=== PATIENT | female | born 1930 | race Caucasian/White ===

== ENCOUNTER 2017-05-05 14:06 | Inpatient (IN) | payer OTHER ==
[~2017-05-05] VITALS: Ht 167.6 cm; Wt 78.3 kg
[~2017-05-05 14:06] MED LIST: ACET-1256 PO; CALCTAB5 PO; CHOL100010 PO; CMD/25 PO; CMD5 PO; DLCS PR; ESCI1TAB6 PO; LPR25 PO; MAGNSUS5 PO; NYSCR30 EXT; OMEP20TA PO; POLYPOW97 PO; PRD/1 PO; ROSU5TAB PO; SODIENE PR; TRAM-10 PO
--- NOTE | 2017-05-05 14:22 | EMERGENCY ROOM VISIT NOTE ---
History Report prepared by Jinibdonny: Danuta Bunn Under the Supervision of: Dr. Kaveh Chavez D.O. First contact with patient: 14:12 Stated Complaint: FALL/ RT KNEE PAIN/ [place] History of Present Illness The patient is an 86 year old female who presents to the Emergency Room with complaints of a fall that occurred prior to arrival. She was brought to the ED via EMS from [facility], where she resides. The patient reports she fell off the toilet around 1215 today and landed on her right side, hitting her right knee, which she has had previously replaced, and her right shoulder. The patient was given Tramadol for her pain at [facility], as well as Zofran and Fentanyl in the field. She is on daily Coumadin. She denies hitting her head or any loss of consciousness during her fall this afternoon. She also denies any fevers, chest pain, shortness of breath, abdominal pain, nausea, vomiting or diarrhea. Source of History: patient, EMS Onset: 1215 today Position: other (global) Timing: resolved Associated Symptoms: No LOC, No fevers, No chest pain, No SOB, No nausea, No vomiting, No abdominal pain, No diarrhea Review of Systems See HPI for pertinent positives & negatives. A total of 10 systems reviewed and were otherwise negative. Past Medical & Surgical Medical Problems: (1) ambulatory disfunction (2) Coronary artery disease (3) Gastroesophageal reflux disease (4) Hyperlipidemia (5) PMR (polymyalgia rheumatica) (6) Pulmonary embolism Family History No pertinent family history Social History Smoking Status: Never Smoker Alcohol Use: none Drug Use: none Marital Status: Housing Status: lives alone, assisted living Occupation Status: retired Current/Historical Medications Scheduled Calcium (Calcium), 1,200 MG PO QAM Cholecalciferol (Vitamin D3), 1 TAB PO DAILY Escitalopram Oxalate (Lexapro), 5 MG PO HS Metoprolol Tartrate (Lopressor), 25 MG PO DAILY Omeprazole (Omeprazole), 20 MG PO DAILY Polyethylene Glycol 3350 (Miralax), 17 GM PO DAILY Prednisone (Prednisone), 3 MG PO DAILY Rosuvastatin Calcium (Crestor), 5 MG PO DAILY Tramadol (Ultram), 50 MG PO HS Warfarin Sod (Coumadin), 2.5 MG PO 3XWK Warfarin Sod (Coumadin), 5 MG PO 4XWK Warfarin Sodium (Warfarin Sodium), 2.5 MG PO 6XWK Warfarin Sodium (Warfarin Sodium), 5 MG PO WK Scheduled PRN Acetaminophen (Tylenol), 650 MG PO Q4 PRN for Mild Pain Aluminum/Magnesium/Simeth (Maalox Max Susp), 30 ML PO ACHS PRN for Indigestion Bisacodyl (Bisac-Evac), 10 MG GA DAILY PRN for Constipation Guaifenesin (Siltussin Sa), 10 ML PO Q4 PRN for Cough Magnesium Hydroxide (Milk Of Magnesia), 30 ML PO DAILY PRN for if no bm x 3 days Menthol-Methyl Salicylate ([place]ona (Icy Hot [place] Extra Streng), 1 APPLN TOP QID PRN for Pain Sodium Phosphate/Biphosphate (Fleet Enema), 1 EA GA DAILY PRN for Constipation Tramadol (Ultram), 1 TAB PO Q4 PRN for Pain Miscellaneous Medications Nystatin (Nystatin Cream), 0 EXT Allergies Coded Allergies: Lisinopril (Verified Allergy, Mild, 05/05/17) Oxycodone (Verified Allergy, Unknown, 05/05/17) Duloxetine (Verified Adverse Reaction, Intermediate, NAUSEA,ANXIETY, ) HMG-CoA-R Inhibitors (Verified Adverse Reaction, Mild, MUSCLE ACHES, ) Morphine (Verified Adverse Reaction, Mild, N & V; 6-13:GAVE IN AMBULANCE W /O REACTION, 05/05/17) Physical Exam Vital Signs Date Time Temp Pulse Resp B/P (MAP) Pulse Ox O2 Delivery O2 Flow Rate FiO2 05/05/17 14:17 36.4 80 20 158/80 93 Room Air Physical Exam GENERAL: Patient is awake, alert, somewhat anxious and uncomfortable appearing EYES: The conjunctivae are clear. The pupils are round and reactive. EARS, NOSE, MOUTH AND THROAT: The nose is without any evidence of any deformity. Mucous membranes are dry, tongue is midline NECK: The neck is nontender and supple. RESPIRATORY: Lung sounds are diminished throughout but no tachypnea or conversational dyspnea noted. CARDIOVASCULAR: Regular rate and rhythm noted there no murmurs rubs or gallops normal S1 normal S2 GASTROINTESTINAL: The abdomen is soft. Bowel sounds are present in all quadrants. Abdomen is nontender MUSCULOSKELETAL/EXTREMITIES: Deformity and tenderness over right distal femur. There was significant swelling and ROM is limited secondary to pain. Also tenderness over the right shoulder. SKIN: Pedal edema bilaterally. Pulses are symmetric. There is no obvious evidence of any rash. There are no petechiae, pallor or cyanosis noted. NEUROLOGIC: Patient is awake alert and oriented x3 Medical Decision & Procedures ER Provider Diagnostic Interpretation: X-ray results as stated below per interpretation by me and the radiologist. RIGHT KNEE 1 OR 2 VIEWS ROUTINE CLINICAL HISTORY: Fall. Right knee pain. COMPARISON: None FINDINGS: There is an oblique moderately displaced distal right femoral fracture that extends to the level of the femoral component of the right knee arthroplasty. Fracture is displaced approximately 1.5 cm. No additional fractures are identified on this examination. IMPRESSION: Acute moderately displaced distal right femoral periprosthetic fracture. Electronically signed by: Berto Vargas M.D. 05/05/2017 3:22 PM CHEST ONE VIEW PORTABLE CLINICAL HISTORY: Fall. COMPARISON STUDY: Chest radiograph October 24, 2014. FINDINGS: Marked elevation of the right hemidiaphragm is unchanged. Right lower lung opacity favors atelectasis. Cardiomegaly is unchanged. There is no pneumothorax or pleural effusion. There is no lobar consolidation. Mild interstitial thickening is unchanged. Elevation of the right humeral head with severe arthritis of the right shoulder is noted. One level vertebral augmentation is incidentally noted. IMPRESSION: No acute cardiopulmonary findings. No change in appearance the chest. Stable mild interstitial thickening. Electronically signed by: Berto Vargas M.D. 05/05/2017 3:33 PM RIGHT PELVIS/UNILATERAL HIP 2-3VIEWS CLINICAL HISTORY: Fall. COMPARISON: CT of the abdomen and pelvis July 24, [address] of the pelvis October 20, 2015.. FINDINGS: Alignment of the total right hip arthroplasty is anatomic. There is no periprosthetic fracture. Old right ischiopubic ring fracture is noted. There is no acute fracture within the pelvis or the hips. Heterotopic ossification adjacent to the femoral component of the right hip arthroplasty is noted. IMPRESSION: 1. No acute fracture within the pelvis or hips. 2. Old right ischiopubic ring fracture. 3. Status post total right hip arthroplasty. Hardware intact with anatomic alignment. No periprosthetic fracture. Electronically signed by: Berto Vargas M.D. 05/05/2017 3:25 PM RIGHT SHOULDER MIN 2 VIEWS ROUTINE CLINICAL HISTORY: Fall. Right shoulder pain. COMPARISON: Right shoulder radiographs May 31, 2015. FINDINGS: Elevation of the right humeral head suggests a chronic rotator cuff tear. There is severe arthritis of the right shoulder. No acute fracture is identified. IMPRESSION: 1. No acute fracture. 2. Elevation of the right humeral head which suggests a chronic rotator cuff tear. 3. Severe degenerative changes of the right shoulder. Electronically signed by: Berto Vargas M.D. 05/05/2017 3:20 PM Laboratory Results Test 05/05/17 14:00 05/05/17 15:50 Activated Partial Thromboplast Time 33.1 SECONDS (21.0-31.0) Partial Thromboplastin Ratio 1.3 Troponin I < 0.015 ng/ml (0-0.045) Urine Color YELLOW Urine Appearance CLOUDY (CLEAR) Urine pH 6.0 (4.5-7.5) Urine Specific [place] 1.020 (1.000-1.030) Urine Protein NEG (NEG) Urine Glucose (UA) NEG (NEG) Urine Ketones TRACE (NEG) Urine Occult Blood NEG (NEG) Urine Nitrite NEG (NEG) Urine Bilirubin NEG (NEG) Urine Urobilinogen NEG (NEG) Urine Leukocyte Esterase SMALL (NEG) Urine WBC (Auto) 1-5 /hpf (0-5) Urine RBC (Auto) 0-4 /hpf (0-4) Urine Hyaline Casts (Auto) 1-5 /lpf (0-5) Urine Epithelial Cells (Auto) >30 /lpf (0-5) Urine Bacteria (Auto) 4+ (NEG) Urine Renal Epithelial Cells /lpf (0-5) Urine Yeast (Auto) (NONE PRSENT) Laboratory results per my review. Medications Administered Medications (Trade) Dose Ordered Sig/[facility] Route Start Time Stop Time Status Last Admin Dose Admin Fentanyl Citrate (Fentanyl Inj) 75 mcg Q20M PRN IV 05/05/17 14:30 05/05/17 17:15 DC 05/05/17 16:09 75 MCG ECG Indication: weakness (fall) Rate (beats per minute): 77 Rhythm: normal sinus Findings: no ectopy, other (Lateral T-wave abnormality) Change: no significant change (No change when compared to July 24, 2016) ED Course 1414: The patient was evaluated in room B4. A complete history and physical examination were performed. 1430: Fentanyl Citrate 75 mcg IV. 1515: I reevaluated the patient. She is resting comfortably. I discussed my recommendation that she remain in the hospital for further evaluation and management and she verbalized complete understanding and agreement. 1528: I discussed the patients case with Dr. [facility]. He recommends a knee mobilizer, and the patient remaining NPO after midnight. She will be further evaluated. 1536: I [facility] the [facility] The patient will be further evaluated. 1615: Phytonadione 5 mg/NSS 50.5 ml @ 101 mls/hr IV. Medical Decision Medication Reconciliation: I attest that I have personally reviewed the patient' s current medications list. Blood pressure screening: Patient was found to have an elevated blood pressure and was referred to their primary doctor for recheck and further treatment. Prior records reviewed and summarized above. Triage Nursing notes reviewed and agree them. Additional history obtained from EMS and Nursing Staff. The patient's history was concerning for traumatic injury. Differential diagnosis: Etiologies such as fracture, dislocation, neurovascular compromise, compartment syndrome, soft tissue injury, as well as others were entertained. The patient is an 86-year-old female who presented to the emergency department after a fall. The patient has a history of knee replacement in the past. She was found to have a periprosthetic distal right femur fracture. I discussed the x-ray with the on-call orthopedic physician. The patient was given IV pain medicine in the emergency department. She was feeling significantly improved on reevaluation. The patient was also treated with vitamin K. I discussed the patient's laboratory and radiographic studies with her and her family member. I also discussed her case with the on-call [facility] group. They've agreed to evaluate the patient in the emergency apartment for further management and disposition. Consults Time Called: 1525 Consulting Physician: Dr. [facility] Returned Call: 1528 I discussed the patients case with Dr. [facility]. He recommends a knee mobilizer, and the patient remaining NPO after midnight. She will be further evaluated. Additional Consults: Time Called: 1531 Consulted Physician: Dr. Patel [facility] Returned Call: 1536 Additional Comments: I discussed the patients case with Dr. Patel, [facility] Hospitalist. The patient will be further evaluated. Impression Primary Impression: Fall Additional Impression: Closed fracture of right distal femur Scribe Attestation The scribe's documentation has been prepared under my direction and personally reviewed by me in its entirety. I confirm that the note above accurately reflects all work, treatment, procedures, and medical decision making performed by me. Departure Information Dispostion Being Evaluated By Hospitalist Brooke Keen M.D. (PCP) Problem Qualifiers Primary Impression: Fall Encounter type: initial encounter Qualified Codes: W19.XXXA - Unspecified fall, initial encounter Additional Impression: Closed fracture of right distal femur Encounter type: initial encounter Fracture morphology: other fracture Qualified Codes: S72.491A - Other fracture of lower end of right femur, initial encounter for closed fracture
[2017-05-05 14:30] LABS: BASO % 0.6 %; BASO ABS # 0.06 K/uL (0-0.2); COMPLETE YES; EOS % 9.6 %; HEMATOCRIT 36.6 % (37-47); IG% 0.3 %; LYMPH ABS # 2.55 K/uL (1.2-3.4); MEAN CELL VOLUME 91.7 fL (80-100); MEAN CORPUSCULAR HEMOGLOBIN 28.3 pg (25-34); MEAN CORPUSCULAR HGB CONC 30.9 g/dl (32-36); MEAN PLATELET VOLUME 10.1 fL (7.4-10.4); MONO % 13.1 %; NEUT % 50.4 %; PLATELET COUNT 275 K/uL (130-400); RED BLOOD COUNT 3.99 M/uL (4.2-5.4)
[2017-05-05 14:38] LABS: PARTIAL THROMBOPLASTIN RATIO 1.3; PROTHROMBIN TIME (PATIENT) 21.9 SECONDS (9.0-12.0)
[2017-05-05] MEDS: FENTANYL CITRATE INJ 50 MCG/1 ML 2 ML VIAL IV PRN ×2 (14:41→16:09)
[2017-05-05 14:48] LABS: BLOOD UREA NITROGEN 19 mg/dl (7-18); BUN/CREATININE RATIO 17.4 (10-20); CALCIUM 8.7 mg/dl (8.5-10.1); CARBON DIOXIDE 27 mmol/L (21-32); CHLORIDE 104 mmol/L (98-107); GLUCOSE 105 mg/dl (70-99); POTASSIUM 4.2 mmol/L (3.5-5.1); SODIUM 141 mmol/L (136-145)
--- NOTE | 2017-05-05 15:21 | DIAGNOSTIC IMAGING REPORT ---
RIGHT SHOULDER MIN 2 VIEWS ROUTINE CLINICAL HISTORY: Fall. Right shoulder pain. COMPARISON: Right shoulder radiographs May 31, 2015. FINDINGS: Elevation of the right humeral head suggests a chronic rotator cuff tear. There is severe arthritis of the right shoulder. No acute fracture is identified. IMPRESSION: 1. No acute fracture. 2. Elevation of the right humeral head which suggests a chronic rotator cuff tear. 3. Severe degenerative changes of the right shoulder. Electronically signed by: Berto Vargas M.D. 05/05/2017 3:20 PM Dictated Date/Time: 05/05/2017 3:17 PM
--- NOTE | 2017-05-05 15:24 | DIAGNOSTIC IMAGING REPORT ---
RIGHT KNEE 1 OR 2 VIEWS ROUTINE CLINICAL HISTORY: Fall. Right knee pain. COMPARISON: None FINDINGS: There is an oblique moderately displaced distal right femoral fracture that extends to the level of the femoral component of the right knee arthroplasty. Fracture is displaced approximately 1.5 cm. No additional fractures are identified on this examination. IMPRESSION: Acute moderately displaced distal right femoral periprosthetic fracture. Electronically signed by: Berto Vargas M.D. 05/05/2017 3:22 PM Dictated Date/Time: 05/05/2017 3:20 PM
--- NOTE | 2017-05-05 15:26 | DIAGNOSTIC IMAGING REPORT ---
RIGHT PELVIS/UNILATERAL HIP 2-3VIEWS CLINICAL HISTORY: Fall. COMPARISON: CT of the abdomen and pelvis July 24, [address] of the pelvis October 20, 2015.. FINDINGS: Alignment of the total right hip arthroplasty is anatomic. There is no periprosthetic fracture. Old right ischiopubic ring fracture is noted. There is no acute fracture within the pelvis or the hips. Heterotopic ossification adjacent to the femoral component of the right hip arthroplasty is noted. IMPRESSION: 1. No acute fracture within the pelvis or hips. 2. Old right ischiopubic ring fracture. 3. Status post total right hip arthroplasty. Hardware intact with anatomic alignment. No periprosthetic fracture. Electronically signed by: Berto Vargas M.D. 05/05/2017 3:25 PM Dictated Date/Time: 05/05/2017 3:22 PM
--- NOTE | 2017-05-05 15:34 | DIAGNOSTIC IMAGING REPORT ---
CHEST ONE VIEW PORTABLE CLINICAL HISTORY: Fall. COMPARISON STUDY: Chest radiograph October 24, 2014. FINDINGS: Marked elevation of the right hemidiaphragm is unchanged. Right lower lung opacity favors atelectasis. Cardiomegaly is unchanged. There is no pneumothorax or pleural effusion. There is no lobar consolidation. Mild interstitial thickening is unchanged. Elevation of the right humeral head with severe arthritis of the right shoulder is noted. One level vertebral augmentation is incidentally noted. IMPRESSION: No acute cardiopulmonary findings. No change in appearance the chest. Stable mild interstitial thickening. Electronically signed by: Berto Vargas M.D. 05/05/2017 3:33 PM Dictated Date/Time: 05/05/2017 3:31 PM
[2017-05-05] MEDS ORDERED: WARF-280 PO (15:41)
[2017-05-05] MEDS ORDERED: POLY335019 PO (15:41)
[2017-05-05] MEDS ORDERED: ALUMSUS2 PO (15:41)
[2017-05-05] MEDS ORDERED: CHOL20007 PO (15:41)
[2017-05-05] MEDS ORDERED: WARF-246 PO (15:41)
[2017-05-05] MEDS ORDERED: MOML PO (15:41)
[2017-05-05] MEDS ORDERED: GUAI100S75 PO (15:41)
[2017-05-05] MEDS ORDERED: LINIOIN3 TOP (15:41)
[2017-05-05] MEDS ORDERED: CALC600T37 PO (15:41)
[2017-05-05] MEDS ORDERED: TRAM-10 PO (15:42)
[2017-05-05] MEDS ORDERED: ACET-1311 PO (15:42)
[2017-05-05 16:07] LABS: URINE APPEARANCE CLOUDY (CLEAR); URINE BILIRUBIN NEG (NEG); URINE COLOR YELLOW; URINE EPITHELIAL CELL AUTO >30 /lpf (0-5); URINE NITRITE NEG (NEG); UROBILINOGEN NEG (NEG); ZZURINE CULT IF INDIC CATH YES
[2017-05-05 16:10] LABS: MANUAL MICROSCOPIC REQUIRED? NO; REVIEW REQ? YES
[2017-05-05 16:15] VITALS: O2SAT 95; Ht 167.6 cm; Wt 78.3 kg
[2017-05-05] MEDS ORDERED: PHYTONADIONE INJ 5 MG in SODIUM CHLORIDE 0.9% 50ML 50 ML IV ONE (16:15)
[2017-05-05 17:30] VITALS: BP 161/89; PULSE 76; TEMP 36.7; O2SAT 91
[2017-05-05] MEDS: ACETAMINOPHEN 325 MG TAB PO PRN (17:31)
[2017-05-05] MEDS ORDERED: ACETAMINOPHEN IV 650 MG in EMPTY BAG 0 ML IV PRN (18:45)
[2017-05-05] MEDS ORDERED: TAPENTADOL HCL 50 MG TAB PO PRN (18:45)
--- NOTE | 2017-05-05 19:03 | History and Physical ---
History & Physical Date & Time of Service: May 05, 2017 at 18:52 Chief Complaint: [facility] Primary Care Physician: Brooke Fuller M.D. History of Present Illness Source: patient, clinic records, hospital records 86 year old female, resident of [facility], with history of Dementia, Pulmonary Embolism, A fib on coumadin, PMR on Prednisone, HTN, GERD, CKD, presenting with fall and right leg pain. Follows with Dr. Fuller for Primary Care Physician. Patient apparently stood up from the toilet, fell and landed on her right side, hitting knee on the floor. She then had severe pain on the right leg. At the ER, xray showed Acute moderately displaced distal right femoral periprosthetic fracture. Ortho consulted and plan is for surgical repair in AM. On exam, patient seen resting in bed, comfortable. Reports severe pain when moving right leg. Denies chest pain, dyspnea, palpitations, dizziness. Oriented x 2. No other symptoms. Past Medical/Surgical History Medical Problems: (1) ambulatory disfunction Status: Chronic (2) Coronary artery disease Status: Chronic (3) Gastroesophageal reflux disease Status: Chronic (4) Hyperlipidemia Status: Chronic (5) PMR (polymyalgia rheumatica) Status: Chronic (6) Pulmonary embolism Status: Chronic Family History No pertinent family history Social History Smoking Status: Never Smoker Alcohol Use: none Drug Use: none Marital Status: Housing status: lives alone Occupational Status: retired Immunizations History of Influenza Vaccine: N/A Influenza Vaccine Date: Jul 27, 2011 History of Tetanus Vaccine?: Unknown History of Pneumococcal: Yes Pneumococcal Date: May 22, 2012 History of Hepatitis B Vaccine: No Multi-Drug Resistant Organisms History of MDRO: No Allergies Coded Allergies: Lisinopril (Verified Allergy, Mild, 05/05/17) Oxycodone (Verified Allergy, Unknown, 05/05/17) Duloxetine (Verified Adverse Reaction, Intermediate, NAUSEA,ANXIETY, ) HMG-CoA-R Inhibitors (Verified Adverse Reaction, Mild, MUSCLE ACHES, ) Morphine (Verified Adverse Reaction, Mild, N & V; 6-13:GAVE IN AMBULANCE W /O REACTION, 05/05/17) Home Medications Scheduled Calcium (Calcium), 1,200 MG PO QAM Cholecalciferol (Vitamin D3), 1 TAB PO DAILY Escitalopram Oxalate (Lexapro), 5 MG PO HS Metoprolol Tartrate (Lopressor), 25 MG PO DAILY Omeprazole (Omeprazole), 20 MG PO DAILY Polyethylene Glycol 3350 (Miralax), 17 GM PO DAILY Prednisone (Prednisone), 3 MG PO DAILY Rosuvastatin Calcium (Crestor), 5 MG PO DAILY Tramadol (Ultram), 50 MG PO HS Warfarin Sod (Coumadin), 2.5 MG PO 3XWK Warfarin Sod (Coumadin), 5 MG PO 4XWK Warfarin Sodium (Warfarin Sodium), 2.5 MG PO 6XWK Warfarin Sodium (Warfarin Sodium), 5 MG PO WK Scheduled PRN Acetaminophen (Tylenol), 650 MG PO Q4 PRN for Mild Pain Aluminum/Magnesium/Simeth (Maalox Max Susp), 30 ML PO ACHS PRN for Indigestion Bisacodyl (Bisac-Evac), 10 MG [place] DAILY PRN for Constipation Guaifenesin (Siltussin Sa), 10 ML PO Q4 PRN for Cough Magnesium Hydroxide (Milk Of Magnesia), 30 ML PO DAILY PRN for if no bm x 3 days Menthol-Methyl Salicylate (Iona (Icy Hot [place] Extra Streng), 1 APPLN TOP QID PRN for Pain Sodium Phosphate/Biphosphate (Fleet Enema), 1 EA [place] DAILY PRN for Constipation Tramadol (Ultram), 1 TAB PO Q4 PRN for Pain Miscellaneous Medications Nystatin (Nystatin Cream), 0 EXT Review of Systems Constitutional- no fever; no weight loss Eyes- no acute visual changes ENT- no sinus drainage; no pharyngitis Pulmonary- no cough, no wheezing, no shortness of breath Cardiac- no chest pain, no palpitations, no orthopnea, no dependent edema GI- no nausea, no vomiting, no diarrhea, no melena, no hematochezia - no dysuria, no hematuria Musculoskeletal-(+) as noted above Derm- no rashes, no new skin lesions, no changing skin lesions Hematologic- no unusual bruising, no unusual bleeding Lymphatics- no adenopathy Endocrine- no polyuria or polydipsia; no heat or cold intolerance Neuro- no headaches, no focal neurologic symptoms Psych- no anxiety, no depression Physical Exam Vital Signs Date Time Temp Pulse Resp B/P (MAP) Pulse Ox O2 Delivery O2 Flow Rate FiO2 05/05/17 17:30 36.7 76 16 161/89 (113) 91 Room Air 05/05/17 17:01 76 16 150/71 94 05/05/17 16:50 72 16 150/71 95 Room Air 05/05/17 16:29 70 16 134/63 95 Room Air 2.0 05/05/17 16:15 95 Room Air 2.0 05/05/17 16:10 72 18 164/91 97 Nasal Cannula 2.0 05/05/17 14:17 36.4 80 20 158/80 93 Room Air General Appearance: WD/WN, no apparent distress Head: normocephalic, atraumatic Eyes: normal inspection, PERRL, EOMI, sclerae normal ENT: normal ENT inspection, hearing grossly normal, pharynx normal Neck: supple, no adenopathy, thyroid normal, no JVD, trachea midline Respiratory/Chest: chest non-tender, lungs clear, normal breath sounds, no respiratory distress, no accessory muscle use Cardiovascular: regular rate, rhythm, no edema, no murmur, normal peripheral pulses Abdomen/GI: normal bowel sounds, non tender, soft, no organomegaly Back: normal inspection, no CVA tenderness Extremities/Musculoskelatal: normal inspection, no calf tenderness, no pedal edema Neurologic/Psych: mentally retarded teacher II-XII nml as tested, no motor/sensory deficits, alert, normal mood/affect, normal reflexes, + pertinent finding (oriented x 2) Skin: normal color, warm/dry, no rash Lymphatic: no adenopathy Diagnostics Laboratory Results Results Past 24 Hours Test 05/05/17 14:00 05/05/17 15:50 Range/Units White Blood Count 9.80 4.8-10.8 K/uL Red Blood Count 3.99 4.2-5.4 M/uL Hemoglobin 11.3 12.0-16.0 g/dL Hematocrit 36.6 37-47 % Mean Corpuscular Volume 91.7 80-100 fL Mean Corpuscular Hemoglobin 28.3 25-34 pg Mean Corpuscular Hemoglobin Concent 30.9 32-36 g/dl Platelet Count 275 130-400 K/uL Mean Platelet Volume 10.1 7.4-10.4 fL Neutrophils (%) (Auto) 50.4 % Lymphocytes (%) (Auto) 26.0 % Monocytes (%) (Auto) 13.1 % Eosinophils (%) (Auto) 9.6 % Basophils (%) (Auto) 0.6 % Neutrophils # (Auto) 4.94 1.4-6.5 K/uL Lymphocytes # (Auto) 2.55 1.2-3.4 K/uL Monocytes # (Auto) 1.28 0.11-0.59 K/uL Eosinophils # (Auto) 0.94 0-0.5 K/uL Basophils # (Auto) 0.06 0-0.2 K/uL RDW Standard Deviation 50.9 36.4-46.3 fL RDW Coefficient of Variation 15.0 11.5-14.5 % Immature Granulocyte % (Auto) 0.3 % Immature Granulocyte # (Auto) 0.03 0.00-0.02 K/uL Prothrombin Time 21.9 9.0-12.0 SECONDS Prothromb Time International Ratio 2.0 0.9-1.1 Activated Partial Thromboplast Time 33.1 21.0-31.0 SECONDS Partial Thromboplastin Ratio 1.3 Sodium Level 141 136-145 mmol/L Potassium Level 4.2 3.5-5.1 mmol/L Chloride Level 104 98-107 mmol/L Carbon Dioxide Level 27 21-32 mmol/L Anion Gap 10.0 3-11 mmol/L Blood Urea Nitrogen 19 7-18 mg/dl Creatinine 1.10 0.60-1.20 mg/dl Est Creatinine Clear Calc Drug Dose 36.8 ml/min Estimated GFR () 51.9 Estimated GFR (Non- 44.8 BUN/Creatinine Ratio 17.4 10-20 Random Glucose 105 70-99 mg/dl Calcium Level 8.7 8.5-10.1 mg/dl Troponin I < 0.015 0-0.045 ng/ml Urine Color YELLOW Urine Appearance CLOUDY CLEAR Urine pH 6.0 4.5-7.5 Urine Specific [place] 1.020 1.000-1.030 Urine Protein NEG NEG Urine Glucose (UA) NEG NEG Urine Ketones TRACE NEG Urine Occult Blood NEG NEG Urine Nitrite NEG NEG Urine Bilirubin NEG NEG Urine Urobilinogen NEG NEG Urine Leukocyte Esterase SMALL NEG Urine WBC (Auto) 1-5 0-5 /hpf Urine RBC (Auto) 0-4 0-4 /hpf Urine Hyaline Casts (Auto) 1-5 0-5 /lpf Urine Epithelial Cells (Auto) >30 0-5 /lpf Urine Bacteria (Auto) 4+ NEG Urine Renal Epithelial Cells 0-5 /lpf Urine Yeast (Auto) NONE PRSENT Microbiology Results 05/05/17 Urine Culture, Received Pending Diagnostic Radiology CXR No acute cardiopulmonary findings. No change in appearance the chest. Stable mild interstitial thickening. EKG sinus rhythm, HR 77, qt 459, no signs of acute ischemia or infarct Impression Assessment and Plan 86 year old female, resident of [facility], with history of Dementia, Pulmonary Embolism, A fib on coumadin, PMR on Prednisone, HTN, GERD, CKD, presenting with fall and right leg pain. RIGHT FEMORAL FRACTURE S/P MECHANICAL FALL - no medical contraindication for surgery: moderate risk for cardiopulmonary complications secondary to age and medical history will hold coumadin, Vit K given, check INR tomorrow will hold Prednisone, Hydrocortisone 50mg IV one dose 1 hour prior to surgery , then 25mg IV q8h x 1 day, then resume usual Prednisone 3mg daily - PRN Tramadol IV fluids ASYMPTOMATIC BACTERIURIA - urine culture pending HISTORY OF PULMONARY EMBOLISM ON COUMADIN - will determine last episode may not need bridging if remote history of PE HISTORY OF ATRIAL FIBRILLATION ON COUMADIN - currently sinus rhythm - continue Metoprolol will hold coumadin, Vit K given, check INR tomorrow POLYMYALGIA RHEUMATICA, ON CHRONIC PREDNISONE will hold Prednisone, Hydrocortisone 50mg IV one dose 1 hour prior to surgery, then 25mg IV q8h x 1 day, then resume usual Prednisone 3mg daily GERD continue PPI CKD stable DEMENTIA stable DVT PROPH SCDs for now CODE STATUS DNR per [facility] records DISPO anticipate return to [facility] when cleared by Ortho Advanced Directives Existing Living Will: Yes Existing Power of Retail Support Associate: Yes VTE Prophylaxis VTE Risk Assessment Done? Y/N: Yes Risk Level: Moderate
[2017-05-05] MEDS: TRAMADOL HCL 50 MG TAB PO PRN (19:24)
[2017-05-05] MEDS: D5W AND NSS 1,000 ML IV SCH (19:43)
[2017-05-05] MEDS ORDERED: FENTANYL CITRATE INJ 50 MCG/1 ML 2 ML VIAL IV PRN (21:00)
[2017-05-05] MEDS: ESCITALOPRAM OXALATE 10 MG TAB PO SCH (21:05)
[2017-05-05] MEDS: NYSTATIN CR 15 GM TUBE EXT SCH (21:05)
[2017-05-05] MEDS ORDERED: HYDROmorphone INJ 1 MG/ML SYR ONE (21:52)
[2017-05-05] MEDS: HYDROmorphone INJ 1 MG/ML SYR IV PRN ×2 (21:55→22:31)
[2017-05-05] MEDS ORDERED: CYCLOBENZAPRINE HCL 10 MG TAB PO PRN (22:30)
[2017-05-05] MEDS ORDERED: HYDROmorphone INJ 1 MG/ML SYR IV PRN (22:45)
[2017-05-05] MEDS ORDERED: NURSING VERBAL MED ORDER ONE (22:45)
[2017-05-05 23:31] VITALS: BP 100/68; PULSE 97; TEMP 37; O2SAT 58; O2SAT 95
[2017-05-06] VITALS (16 sets, daily range): BP systolic 77–141; BP diastolic 38–81; PULSE 61–81; TEMP 36.4–36.7; O2SAT 95–99
[2017-05-06] MEDS ORDERED: HYDROCORTISONE IV 50 MG in SYRINGE 0 ML IV SCH (04:00)
[2017-05-06] MEDS ORDERED: NURSING VERBAL MED ORDER ONE ×5 (04:45→23:15)
[2017-05-06 06:46] LABS: BASO % 0.4 %; BASO ABS # 0.04 K/uL (0-0.2); COMPLETE YES; EOS % 6.3 %; HEMATOCRIT 34.7 % (37-47); IG% 0.6 %; LYMPH % 12.5 %; LYMPH ABS # 1.33 K/uL (1.2-3.4); MEAN CORPUSCULAR HEMOGLOBIN 27.9 pg (25-34); MEAN PLATELET VOLUME 9.7 fL (7.4-10.4); MONO % 12.1 %; NEUT % 68.1 %; PLATELET COUNT 240 K/uL (130-400); RED BLOOD COUNT 3.73 M/uL (4.2-5.4); WHITE BLOOD COUNT 10.62 K/uL (4.8-10.8)
[2017-05-06 06:52] LABS: INR 1.2 (0.9-1.1)
--- NOTE | 2017-05-06 07:00 | DIAGNOSTIC IMAGING REPORT ---
CHEST ONE VIEW PORTABLE CLINICAL HISTORY: low urine output, low O2 saturations, crackles in bases of lungs COMPARISON STUDY: 05/05/2017 FINDINGS: The cardiac and mediastinal contours remain stable. There is persistent elevation right hemidiaphragm. There is elevation of the interstitium. An element of pulmonary vascular congestion/fluid overload is suspected. There is no lobar consolidation. Right basilar atelectatic changes are evident. Arthritic changes are present within the shoulders with radiographic evidence of chronic right-sided rotator cuff tear. Post vertebroplasty changes are evident.[ IMPRESSION: 1. Persistent elevation right hemidiaphragm 2. Suspected mild pulmonary vascular congestion/fluid overload Electronically signed by: Flaco Rodriguez M.D. 05/06/2017 6:59 AM Dictated Date/Time: 05/06/2017 6:57 AM
[2017-05-06 07:28] LABS: BUN/CREATININE RATIO 17.9 (10-20); CALCIUM 8.3 mg/dl (8.5-10.1); POTASSIUM 4.2 mmol/L (3.5-5.1)
[2017-05-06] MEDS ORDERED: CEFAZOLIN IV 1,000 MG in DEXTROSE 5% 50ML 50 ML IV ONE (07:45)
[2017-05-06] MEDS ORDERED: CEFAZOLIN 1000MG/55 ML D5W IV SCH (08:00)
[2017-05-06] MEDS ORDERED: BUPIVACAINE 0.5 % 5 MG/1 ML PF 10ML VIAL ONE (08:00)
[2017-05-06] MEDS ORDERED: KETAMINE HCL INJ 50 MG/ML 10 ML VIAL ONE ×2 (08:03→13:06)
[2017-05-06] MEDS ORDERED: BACITRACIN 50000 UNIT VIAL ONE ×2 (08:04→13:07)
[2017-05-06] MEDS ORDERED: LIDOCAINE 2% 20 MG/ML 5ML SYR ONE (08:05)
[2017-05-06] MEDS ORDERED: MIDAZOLAM HCL 1 MG/ML 2ML VIAL ONE (08:05)
[2017-05-06] MEDS ORDERED: PROPOFOL IV EMULSION 10 MG/ML 20 ML VIAL IV ONE ×2 (08:05→11:27)
[2017-05-06] MEDS ORDERED: FENTANYL CITRATE INJ 50 MCG/1 ML 2 ML VIAL ONE ×3 (08:06→14:09)
[2017-05-06] MEDS ORDERED: CEFAZOLIN IV 2,000 MG/60 ML D5W IV ONE (08:07)
--- NOTE | 2017-05-06 08:09 | History & Physical Bridge Note ---
H&P Re-Evaluation Bridge Note: I have examined the patient, reviewed the History & Physical and in the interval since the performance of the History & Physical I have noted the following changes of clinical significance: No changes noted
--- NOTE | 2017-05-06 08:11 | Progress Note ---
Orthopedic SOAP Note Subjective Date of Service: May 06, 2017. Additional Notes: confused follows commands sedated some Problem List Medical Problems: (1) Closed fracture of right distal femur Status: Acute (2) Epigastric abdominal pain Status: Acute (3) Fall Status: Acute (4) Low back pain Status: Acute (5) Lumbar compression fracture Status: Acute Objective right knee in immobilizer distal csm intact pain with any movement Date Time Temp Pulse Resp B/P (MAP) Pulse Ox O2 Delivery O2 Flow Rate FiO2 05/06/17 07:25 36.6 75 15 131/81 (98) 99 Nasal Cannula 4.0 05/06/17 03:13 36.4 81 16 141/78 (99) 97 Nasal Cannula 3.0 05/05/17 23:31 95 Nasal Cannula 3.0 05/05/17 23:31 37.0 97 16 100/68 (79) 58 Room Air 05/05/17 23:15 Room Air 05/05/17 17:30 36.7 76 16 161/89 (113) 91 Room Air 05/05/17 17:20 Room Air 05/05/17 17:01 76 16 150/71 94 05/05/17 16:50 72 16 150/71 95 Room Air 05/05/17 16:29 70 16 134/63 95 Room Air 2.0 05/05/17 16:15 95 Room Air 2.0 05/05/17 16:10 72 18 164/91 97 Nasal Cannula 2.0 05/05/17 14:17 36.4 80 20 158/80 93 Room Air Laboratory Results 24 Hours: Test 05/05/17 14:00 05/06/17 06:09 White Blood Count 9.80 K/uL 10.62 K/uL Red Blood Count 3.99 M/uL 3.73 M/uL Hemoglobin 11.3 g/dL 10.4 g/dL Hematocrit 36.6 % 34.7 % Mean Corpuscular Volume 91.7 fL 93.0 fL Mean Corpuscular Hemoglobin 28.3 pg 27.9 pg Mean Corpuscular Hemoglobin Concent 30.9 g/dl 30.0 g/dl Platelet Count 275 K/uL 240 K/uL Mean Platelet Volume 10.1 fL 9.7 fL Neutrophils (%) (Auto) 50.4 % 68.1 % Lymphocytes (%) (Auto) 26.0 % 12.5 % Monocytes (%) (Auto) 13.1 % 12.1 % Eosinophils (%) (Auto) 9.6 % 6.3 % Basophils (%) (Auto) 0.6 % 0.4 % Neutrophils # (Auto) 4.94 K/uL 7.24 K/uL Lymphocytes # (Auto) 2.55 K/uL 1.33 K/uL Monocytes # (Auto) 1.28 K/uL 1.28 K/uL Eosinophils # (Auto) 0.94 K/uL 0.67 K/uL Basophils # (Auto) 0.06 K/uL 0.04 K/uL Prothromb Time International Ratio 2.0 1.2 Prothrombin Time 21.9 SECONDS 13.0 SECONDS Assessment periprosthetic femur fracture s/p right tka Plan orif locking periprosthetic plate
[2017-05-06] MEDS: D5W AND NSS 1,000 ML IV SCH ×3 (08:15→19:30)
[2017-05-06] MEDS ORDERED: LACTATED RINGER'S 1000ML 1,000 ML IV PRN (08:22)
[2017-05-06] MEDS ORDERED: CEFAZOLIN 2000 MG/60 ML D5W IV SCH (08:30)
[2017-05-06] MEDS ORDERED: FENTANYL CITRATE INJ 50 MCG/1 ML 2 ML VIAL IV PRN (08:30)
[2017-05-06] MEDS ORDERED: ONDANSETRON INJ 2 MG/ML 2 ML VIAL IV PRN (08:30)
[2017-05-06] MEDS: NYSTATIN CR 15 GM TUBE EXT SCH ×2 (09:00→20:49)
[2017-05-06] MEDS ORDERED: PANTOprazole SOD 40 MG TAB PO SCH (09:00)
[2017-05-06] MEDS: POLYETHYLENE (MIRALAX) 17 GM PACK PO SCH (09:00)
--- NOTE | 2017-05-06 09:41 | CONSULTATION REPORT ---
DATE OF CONSULTATION: 05/06/2017 CHIEF COMPLAINT: Right leg injury. HISTORY OF PRESENT ILLNESS: This is an 86-year-old female who is a resident of [facility]. She apparently stood up from her toilet and fell, landing on her right side with her knee hitting the floor. She was transported to the [facility] Emergency Department due to being unable to ambulate. X-rays showed a displaced right femoral periprosthetic fracture. The patient was admitted by medicine for surgical repair. PAST MEDICAL HISTORY: Dementia, pulmonary embolism, atrial fibrillation; on Coumadin, polymyalgia rheumatica; on prednisone, hypertension, GERD, chronic kidney disease, ambulatory dysfunction and coronary artery disease. FAMILY HISTORY: Noncontributory. SOCIAL HISTORY: The patient is a nonsmoker, nondrinker. She is a resident at [facility]. HOME MEDICATIONS: Reviewed in the admitting H and P. PAST SURGICAL HISTORY: Refer to admitting H and P. Again includes bilateral total knee replacements, hysterectomy and hip surgery. ALLERGIES: INCLUDE JULES INHIBITORS, DILANTIN AND LISINOPRIL. URRENT LABORATORY STUDIES ON ADMISSION: She is on Coumadin. Given the INR of 2.0, medicine team did reverse that with vitamin K. Currently this morning, it is 1.2 and acceptable for surgery. PHYSICAL EXAMINATION: CURRENT VITAL SIGNS: Temperature is 36.4, pulse is 81, blood pressure is 141/78, pulse ox is 97 with 3 L of oxygen. GENERAL: Well-developed, well-nourished 86-year-old female. She is in no acute distress. She is very demented. She is not oriented to place or time at this point this morning. HEENT: Normocephalic, atraumatic. Extraocular motions are intact. Pupils are equal and reactive to light. HEART: Regular rate and rhythm. No murmurs appreciated. LUNGS: Clear. ABDOMEN: Soft and nontender with bowel sounds present. EXTREMITIES: Right lower extremity is immobilized was straight leg immobilizer. She is able to wiggle her toes. This was not removed. DIAGNOSES: Right femoral periprosthetic femur fracture. She has a history of dementia, pulmonary embolism, atrial fibrillation; on Coumadin, polymyalgia rheumatica; on prednisone, hypertension, GERD, chronic kidney disease, ambulatory dysfunction and coronary artery disease. PLAN: The patient will be admitted by medicine. Orthopedically, the plan will be to do an open reduction internal fixation of the right periprosthetic femur fracture when she is cleared by medicine.
--- NOTE | 2017-05-06 10:00 | ORTHOPEDIC CONSULTATION ---
DATE OF CONSULTATION: 05/06/2017 HISTORY OF PRESENT ILLNESS: The patient is an 86-year-old female who is a resident of [facility]. She has some dementia, had a history of pulmonary embolism in the past. She has AFib, aortic stenosis, she is on chronic Coumadin. She has polymyalgia rheumatica. She is on prednisone. Hypertension, GERD, chronic kidney disease. She had a fall and right leg pain. X-rays demonstrating a periprosthetic right femur fracture just above the prosthetic, it is a low fracture, a low oblique type fracture. She does have some osteopenia. She has a history of prior ambulatory dysfunction, coronary artery disease, reflux disease, hyperlipidemia, PMR, pulmonary embolism. SOCIAL HISTORY: She is , lives in a custodial. MEDICATIONS: Pertinent medication are the prednisone 3 mg daily, and the Coumadin. Other medications for pain are chronic Ultram and she takes other meds including MiraLax, omeprazole, Lopressor, Lexapro, vitamin D, calcium. PHYSICAL EXAMINATION: Demonstrates that she is awake, alert. She follows commands, but she is a little bit confused. Her right lower extremity demonstrates that she has a knee held in the flexed position. She has a knee immobilizer. She can dorsiflex her ankle and great toe. She has good capillary refill. Her opposite extremity shows an incision from a knee replacement on the left knee. Neurovascularly intact left lower extremity. Her x-rays demonstrate a oblique periprosthetic right femur fracture just above the prosthetic, extends down to about the level of the prosthetic. She does have some osteopenia of the bones. 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 She had old, appears to be pubic ramus fracture on that side as well. She has significant degenerative disc disease on the lumbar spine. Left hip appears to be normal. ASSESSMENT: Acute periprosthetic right femur fracture. Options for treatment are open reduction and internal fixation with plate and screw fixation versus a distal femoral replacement revision knee replacement. I think at her age and with activity level proceeding with open reduction and internal fixation is a better option. She is scheduled for the surgery today as her INR has decreased from 2 to 1.2 now with vitamin K medication. I discussed the case and got consent from her daughter who is her power of family law attorney, aware of all the risks and benefits.
[2017-05-06] MEDS: METOPROLOL TARTRATE 25 MG TAB PO SCH (10:13)
[2017-05-06] MEDS: ROSUVASTATIN CALCIUM 5 MG TAB PO SCH (10:13)
[2017-05-06] MEDS: HYDROmorphone INJ 1 MG/ML SYR IV PRN (10:13)
[2017-05-06] MEDS ORDERED: ROCURONIUM BROMIDE 10 MG/ML 5 ML VIAL ONE ×2 (11:27→14:06)
[2017-05-06] MEDS ORDERED: LIDOCAINE HCL 2% 2 ML VIAL (20MG/ML) ONE (11:27)
[2017-05-06] MEDS ORDERED: ONDANSETRON INJ 2 MG/ML 2 ML VIAL ONE (13:42)
[2017-05-06] MEDS ORDERED: DEXAMETHASONE SOD INJ 4 MG/ML VIAL ONE (13:42)
[2017-05-06] MEDS ORDERED: EpHEDrine SULFATE 50MG/5ML SYR ONE (13:42)
--- NOTE | 2017-05-06 14:01 | Progress Note ---
Medicine Progress Note Date & Time of Visit: May 06, 2017 at 12:39. Subjective patient seen resting in bed, family at bedside denies shortness of breath, cough, chest pain still has significant right leg pain when moving no other symptoms Objective Last 8 Hrs Date Time Temp Pulse Resp B/P (MAP) Pulse Ox O2 Delivery O2 Flow Rate FiO2 05/06/17 07:50 98 Nasal Cannula 3.0 05/06/17 07:25 36.6 75 15 131/81 (98) 99 Nasal Cannula 4.0 Physical Exam: General- oriented x 2, not in distress, speaks in sentences with no effort Head- atraumatic Eyes- EOMI, anicteric ENT- dry oral mucosa Neck- supple, no JVD Lungs- clear breath sounds bilaterally, no rales/wheezes Heart- regular rhythm; no murmur, normal rate Abdomen- normal bowel sounds, soft, nontender, Extremities- right leg with soft brace on, no bipedal edema Neuro- alert, oriented x 3; no gross focal deficits Skin- warm & dry Laboratory Results: Last 24 Hours Test 05/05/17 14:00 05/05/17 15:50 05/06/17 06:09 White Blood Count 9.80 K/uL 10.62 K/uL Red Blood Count 3.99 M/uL 3.73 M/uL Hemoglobin 11.3 g/dL 10.4 g/dL Hematocrit 36.6 % 34.7 % Mean Corpuscular Volume 91.7 fL 93.0 fL Mean Corpuscular Hemoglobin 28.3 pg 27.9 pg Mean Corpuscular Hemoglobin Concent 30.9 g/dl 30.0 g/dl Platelet Count 275 K/uL 240 K/uL Mean Platelet Volume 10.1 fL 9.7 fL Neutrophils (%) (Auto) 50.4 % 68.1 % Lymphocytes (%) (Auto) 26.0 % 12.5 % Monocytes (%) (Auto) 13.1 % 12.1 % Eosinophils (%) (Auto) 9.6 % 6.3 % Basophils (%) (Auto) 0.6 % 0.4 % Neutrophils # (Auto) 4.94 K/uL 7.24 K/uL Lymphocytes # (Auto) 2.55 K/uL 1.33 K/uL Monocytes # (Auto) 1.28 K/uL 1.28 K/uL Eosinophils # (Auto) 0.94 K/uL 0.67 K/uL Basophils # (Auto) 0.06 K/uL 0.04 K/uL RDW Standard Deviation 50.9 fL 51.8 fL RDW Coefficient of Variation 15.0 % 15.1 % Immature Granulocyte % (Auto) 0.3 % 0.6 % Immature Granulocyte # (Auto) 0.03 K/uL 0.06 K/uL Prothrombin Time 21.9 SECONDS 13.0 SECONDS Prothromb Time International Ratio 2.0 1.2 Activated Partial Thromboplast Time 33.1 SECONDS Partial Thromboplastin Ratio 1.3 Sodium Level 141 mmol/L 142 mmol/L Potassium Level 4.2 mmol/L 4.2 mmol/L Chloride Level 104 mmol/L 105 mmol/L Carbon Dioxide Level 27 mmol/L 31 mmol/L Anion Gap 10.0 mmol/L 6.0 mmol/L Blood Urea Nitrogen 19 mg/dl 18 mg/dl Creatinine 1.10 mg/dl 1.00 mg/dl Est Creatinine Clear Calc Drug Dose 36.8 ml/min 40.5 ml/min Estimated GFR () 51.9 58.3 Estimated GFR (Non- 44.8 50.3 BUN/Creatinine Ratio 17.4 17.9 Random Glucose 105 mg/dl 110 mg/dl Calcium Level 8.7 mg/dl 8.3 mg/dl Troponin I < 0.015 ng/ml Urine Color YELLOW Urine Appearance CLOUDY Urine pH 6.0 Urine Specific Sheridan 1.020 Urine Protein NEG Urine Glucose (UA) NEG Urine Ketones TRACE Urine Occult Blood NEG Urine Nitrite NEG Urine Bilirubin NEG Urine Urobilinogen NEG Urine Leukocyte Esterase SMALL Urine WBC (Auto) 1-5 /hpf Urine RBC (Auto) 0-4 /hpf Urine Hyaline Casts (Auto) 1-5 /lpf Urine Epithelial Cells (Auto) >30 /lpf Urine Bacteria (Auto) 4+ Urine Renal Epithelial Cells /lpf Urine Yeast (Auto) Date/Time Source Procedure Growth Status 05/05/17 19:50 Nasal MRSA DNA Surveillance Screen - Final Specimen Negative for MRSA by DNA Probe Complete 05/05/17 15:50 Urine,Catheterized Urine Culture Pending Received Assessment & Plan 86 year old female, resident of [facility], with history of Dementia, Pulmonary Embolism, A fib on coumadin, PMR on Prednisone, HTN, GERD, CKD, presenting with fall and right leg pain. RIGHT FEMORAL FRACTURE S/P MECHANICAL FALL - no medical contraindication for surgery: moderate risk for cardiopulmonary complications secondary to age and medical history holding coumadin, Vit K given, INR 1.2--> resume coumadin as soon as hemostasis stable per Ortho will hold Prednisone, Hydrocortisone 50mg IV one dose 1 hour prior to surgery , then 25mg IV q8h x 1 day, then resume usual Prednisone 3mg daily - PRN Tramadol IV fluids ASYMPTOMATIC BACTERIURIA - urine culture pending HISTORY OF PULMONARY EMBOLISM ON COUMADIN - last episode at least > 5 years from now - may not need bridging but needs to resume Coumadin as soon as possible HISTORY OF ATRIAL FIBRILLATION ON COUMADIN - currently sinus rhythm - continue Metoprolol will hold coumadin, Vit K given POLYMYALGIA RHEUMATICA, ON CHRONIC PREDNISONE will hold Prednisone, Hydrocortisone 50mg IV one dose 1 hour prior to surgery, then 25mg IV q8h x 1 day, then resume usual Prednisone 3mg daily GERD continue PPI CKD stable DEMENTIA stable DVT PROPH SCDs for now CODE STATUS DNR per [facility] records DISPO anticipate return to [facility] when cleared by Ortho Advanced Directives Existing Living Will: Yes Existing Power of Riffler Tender: Yes VTE Prophylaxis VTE Risk Assessment Done? Y/N: Yes Risk Level: Moderate Current Inpatient Medications: Current Inpatient Medications Medications (Trade) Dose Ordered Sig/Nemesio Route Start Time Stop Time Status Last Admin Dose Admin Acetaminophen (Tylenol Tab) 650 mg Q4H PRN PO 05/05/17 16:15 06/04/17 16:14 05/05/17 17:31 650 MG Dextrose/Sodium Chloride 1,000 ml @ 60 mls/hr [id number] IV 05/05/17 18:45 06/04/17 18:44 05/06/17 11:50 60 MLS/HR Tramadol HCl (Ultram Tab) 50 mg Q6H PRN PO 05/05/17 18:45 06/04/17 18:44 05/05/17 19:24 50 MG Acetaminophen 650 mg/Empty Bag 65 ml @ 260 mls/hr Q6H PRN IV 05/05/17 18:45 06/04/17 18:44 Hydrocortisone Sodium Succinate 50 mg/Syringe 1 ml @ 4 mls/min TODAY@0400 IV 05/06/17 04:00 05/06/17 14:00 Escitalopram Oxalate (Lexapro Tab) 5 mg HS PO 05/05/17 21:00 06/04/17 20:59 05/05/17 21:05 5 MG Metoprolol Tartrate (Lopressor Tab) 25 mg DAILY PO 05/06/17 09:00 06/05/17 08:59 05/06/17 10:13 25 MG Nystatin (Mycostatin Crm) 1 appln BID EXT 05/05/17 21:00 06/04/17 20:59 05/05/17 21:05 1 APPLN Rosuvastatin Calcium (Crestor Tab) 5 mg DAILY PO 05/06/17 09:00 06/05/17 08:59 05/06/17 10:13 5 MG Pantoprazole Sodium (Protonix Tab) 40 mg DAILY PO 05/06/17 09:00 06/05/17 08:59 05/06/17 10:13 40 MG Polyethylene (Miralax Powder Packet) 17 gm DAILY PO 05/06/17 09:00 06/05/17 08:59 Hydromorphone HCl (Dilaudid Inj) 0.5 mg Q6H PRN IV 05/05/17 21:45 05/19/17 21:44 05/06/17 10:13 0.5 MG Hydromorphone HCl (Dilaudid Inj) 1 mg Q4H PRN IV 05/05/17 22:45 05/19/17 22:44 Cefazolin Sodium 60 ml @ 100 mls/hr PREOP IV 05/06/17 08:30 05/06/17 16:00
[2017-05-06] MEDS ORDERED: GLYCOPYRROLATE INJ 0.2 MG/ML VIAL ONE (14:59)
[2017-05-06] MEDS ORDERED: NEOSTIGMINE METHYLSULFATE 5 MG/5 ML SYR ONE (14:59)
--- NOTE | 2017-05-06 15:48 | [facility] Operative Report ---
Operative Report Operative Date May 06, 2017. Pre-Operative Diagnosis Acute periprosthetic Femur Fracture Right,h/o TKA Post-Operative Diagnosis SAME Procedure(s) Performed ORIF with synthes locking plate and screws Surgeon Teasel Gig Operator Surgeon(s) Iam Kang PA-C Estimated Blood Loss 200ML Findings distal femoral metaphyseal periprosthetic fx no loosening of TKA osteopenia and some comminution medial Specimens None per surgeon. Drains 2 hemovac Anesthesia general Complication(s) None Disposition Recovery Room / PACU Indications acute unstable displaced fracture I attest to the content of the Intraoperative Record and any orders documented therein. Any exceptions are noted below.
--- NOTE | 2017-05-06 16:08 | DIAGNOSTIC IMAGING REPORT ---
INTRAOPERATIVE RIGHT FEMUR 3 VIEWS CLINICAL HISTORY: Fracture. INTERNAL FIXATION COMPARISON: Conventional radiographic study the knee dated 05/05/2017 DISCUSSION: 76 seconds of fluoroscopic time was utilized. There are postsurgical changes of a total right knee arthroplasty. There is evidence for internal fixation of distal femoral fracture with a lateral metallic plate and multiple screws. IMPRESSION: Interval internal fixation of the distal right femoral periprosthetic fracture. Electronically signed by: Flaco Rodriguez M.D. 05/06/2017 4:07 PM Dictated Date/Time: 05/06/2017 4:06 PM
[2017-05-06] MEDS ORDERED: WARFARIN SOD 2.5 MG TAB PO SCH (16:30)
[2017-05-06] MEDS ORDERED: MIDAZOLAM HCL 5 MG/ML 1 ML VIAL ONE (16:53)
--- NOTE | 2017-05-06 17:34 | OPERATIVE REPORT ---
DATE OF OPERATION: 05/06/2017 INDICATION FOR PROCEDURE: An 86-year-old female who presents with acute fracture to her right femur. She had a fall. She lives in a personal retirement. She had total knee replacement by Dr. Dawson many years ago. She also had bipolar hip replacement on her right hip. She fractured her femur in the metaphysis, it is an oblique fracture, extends right down to the joint replacement to the prosthetic. PREOPERATIVE DIAGNOSES: Periprosthetic right femur fracture, history of total knee replacement, ipsilateral. History of prior bipolar hip replacement, ipsilateral. POSTOPERATIVE DIAGNOSES: Same including osteopenia/osteoporosis of the bone with some comminution medial metaphysis. PROCEDURE: Open reduction and internal fixation right femoral fracture with a Synthes 6-hole locking condylar plate with screw fixation. SURGEON: Dr. Muñoz. DATA OPERATIONS DIRECTOR: ADEOLA Washburn ANESTHESIA: General. OPERATIVE PROCEDURE: The patient was taken to the operating room, anesthetized under general anesthetic. She did have a history of aortic stenosis. General was indicated per anesthesia. She also had some muscle relaxant to assist in reduction. She was placed supine on the operating room table. The right lower extremity was prepped and draped in a sterile fashion. Exam of her opposite knee which had a slight flexion contracture, so slight flexion contracture is probably her baseline on her right knee as well. Right lower extremity was prepped and draped with ChloraPrep from the foot to the hip. Her fracture was grossly unstable. It was closed fracture. A lateral incision was made starting at Gerdy's tubercle extending along the IT band extending up to about the mid thigh. The skin was incised sharply. Subcutaneous flaps were elevated. The fascia ginger was divided longitudinally and the IT band was split. Dissection was taken down on to the distal femoral fracture. We had to release the synovium to actually visualize the joint because the fracture went all the way down into the joint right at the superior flange of the joint replacement, fracture went right down to the tip of the prosthetic anteriorly. The shaft fragment medially was displaced distal and the spike of the fracture fragment which was posterior was around 6 cm. This was more of a spiral short oblique fracture with a posterior spike. At this time, the vastus lateralis was dissected carefully off the IT band posteriorly and reflected anteriorly and then we exposed the proximal femoral shaft enough to place our plate in position. There were 2 large perforating vessels that we tied off with silk ties and divided. At this time, a fracture reduction was performed by placing longitudinal traction. Placing appropriate rotation I placed a lion-jaw type retractor instead shaft superiorly and inferiorly placed traction, rotated the fracture and assisted it with some Coyle elevator to reduce the fracture anatomically and then it was grasped with another lion-jaw reduction forceps. We checked fluoroscopic views to assess the alignment to be anatomic and noticed some medial comminution. At this time, I thought we could stabilize the fracture with an anterior superior posterior inferior lag screw directed at the more of a lateral side where there was better bone. So I did lag this with a 4.5 cortical screw with a Synthes screw stainless steel. The lag screw held the reduction well. We had to continue traction on the leg and held retractors to adjust a 6-hole Synthes locking condylar plate onto the lateral femoral shaft and condyle. We positioned this appropriately, placed the central guidepin into the large central hole to maintain the alignment along the distal fragment and then proximally I lagged another 4.5 mm cortical screw from lateral to medial, lagging the plate down and compressing it onto the femoral shaft. This maintained our length and reduction. We assessed the AP and lateral views to ensure appropriate alignment of the plate and then went ahead and placed the 5 mm locking screws in all but the anterior distal most hole in the plate which we used a solid 5 mm screw which was only 18 mm and was too short of a distance between the bone and the metal prosthetic to place cannulated screw. The central screw was the 7.3 mm cannulated screw and the proximal locking screws were 4 mm shaft locking screws. With gentle range of motion fixation was solid. We assessed the AP and lateral views demonstrating the reduction to be anatomic. The wound was irrigated copiously with pulsatile lavage antibiotic solution and bacitracin including the knee joint and then I brought 2 drains out laterally and connected to a Hemovac and placed it deep to the vastus lateralis and 1 into the joint anteriorly and 1 posterior to the fracture site. The fascia ginger was closed with [id number] #1 Vicryl sutures. The IT band closed with [id number] #1 Vicryl sutures. The subcutaneous tissues were closed with interrupted 2-0 Vicryl and the skin was closed with rickey. Sterile dressings were applied and Manolo wrap from the foot to the thigh and knee immobilizer was applied. The patient had about 200 mL estimated blood loss and tolerated the procedure well. ADEOLA Washburn was my instructional assistant and he functioned as instructional assistant in the procedure. He assisted in fracture reduction, maintaining the reduction, retraction, assisted in the subcutaneous skin closure and will participate in the postoperative care of the patient. I attest to the content of the Intraoperative Record and any orders documented therein. Any exception s are noted below.
[2017-05-06] MEDS: HYDROCORTISONE IV 25 MG in SYRINGE 0 ML IV SCH (19:45)
--- NOTE | 2017-05-06 19:59 | DIAGNOSTIC IMAGING REPORT ---
KUB CLINICAL HISTORY: OGT placement COMPARISON STUDY: 03/30/2014 FINDINGS: There is no pathologic bowel dilatation. There is enteric tube projected over the stomach. Degenerative changes are present within the spine. There is evidence for prior T12 vertebroplasty. IMPRESSION: The enteric tube is visualized with its tip projected over the stomach. Electronically signed by: Flaco Rodriguez M.D. 05/06/2017 7:58 PM Dictated Date/Time: 05/06/2017 7:57 PM
--- NOTE | 2017-05-06 20:13 | DIAGNOSTIC IMAGING REPORT ---
CHEST ONE VIEW PORTABLE CLINICAL HISTORY: Intubation RESPIRATORY FAILURE COMPARISON STUDY: 05/06/2017 FINDINGS: There is a nasogastric tube which passes into the stomach. There is an endotracheal tube 28 mm above the chantel. The cardiac images so contours remain stable. There is elevation of the right hemidiaphragm. There is continued radiographic evidence of pulmonary vascular congestion/fluid overload.[ IMPRESSION: 1. Interval placement of endotracheal tube 20 mm above the chantel 2. Nasogastric tube within the stomach 3. Persistent elevation right hemidiaphragm 4. Persistent mild pulmonary vascular congestion/fluid overload Electronically signed by: Flaco Rodriguez M.D. 05/06/2017 8:12 PM Dictated Date/Time: 05/06/2017 8:11 PM
--- NOTE | 2017-05-06 20:25 | Anesthesiology Progress Note ---
Anesthesia Post Op Note Date & Time May 06, 2017 at 19:24 Vital Signs Pain Intensity: 0.0 Vital Signs Past 12 Hours Date Time Temp Pulse Resp B/P (MAP) Pulse Ox O2 Delivery O2 Flow Rate FiO2 05/06/17 17:55 36.4 85 14 112/52 97 Mechanical Ventilator 05/06/17 17:45 89 14 123/52 98 Mask 15 05/06/17 17:35 36.4 85 14 158/82 97 Mask 15 05/06/17 17:25 82 14 161/69 97 Mask 15 05/06/17 17:15 81 14 153/68 98 Mask 15 05/06/17 17:05 87 18 154/68 89 Mask 10 05/06/17 16:55 83 18 152/78 95 Mask 10 05/06/17 16:45 36.7 89 18 172/85 94 Mask 10 05/06/17 16:37 36.7 90 18 174/93 94 Mask 10 05/06/17 07:50 98 Nasal Cannula 3.0 05/06/17 07:25 36.6 75 15 131/81 (98) 99 Nasal Cannula 4.0 Notes Mental Status: see Notes Nausea / Vomiting: see Notes Pain: see Notes Airway Patency, RR, SpO2: see Notes BP & HR: stable & adequate Hydration State: stable & adequate See anesthesia record for additional details. Pt was to have ORIF of distal femur fracture. I chose to avoid a spinal because her echo from showed mild- mod . This may have worsened since then. Spinals in this situation can result in significant hypotension. Therefore, I opted for general anesthesia. We chose to intubate w/ a Glidescope since I noted a protuberance from her hard palate which may make direct laryngoscopy w/ out a Glidescope difficult. After a smooth induction, we easily intubated the pt. We did note some thick secretions in the pharynx which we suctioned. The case was unremarkable. She was hemodynamically stable w/ 99-100% sats throughout. At the end of the case, she had 4/4 twitches. I gave an appropriate, weight-based dose of reversal of neuromuscular blockade. She was moving, opening her eyes, following some commands, and pulling adequate tidal volumes w/ appropriate respiratory rate. She thus met extubation criteria. I suctioned some thick, purulent secretions from her oropharynx prior to extubation. After I extubated, I noted more secretions in her mouth so I suctioned these. I then noted her to not be moving air despite respiratory effort. I attempted to mask ventilate but was unable, even w/ an oral airway. I strongly suspected laryngospasm, possibly related to the secretions. I applied positive pressure w/ the mask but was unable to break the laryngospasm. Her sats began to drop. I gave 20 mg succinylcholine IV which quickly broke the spasm. I was then able to easily ventilate and her sats returned to the high 90s. The lowest sat I saw was 87% but she quickly recovered ; she was < 90% for less than a minute. I continued to ventilate, expecting this small dose of succinylcholine to resolve after several minutes. After maybe 15 minutes, she began to make respiratory effort but was "breathing" extremely shallowly, requiring assistance. She was not moving her extremities, eyes, or swallowing. After another 15 minutes or so, she was still breathing very shallowly but not moving. Without assistance, her sat would slowly drift down, falling to the low 90s over the course of several minutes. She had 4/4 twitches but they were weak. 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 I was hoping it was either quantitative (low levels of normal versions of the enzyme) or heterozygous qualitative (one allele normal, the other abnormal). Either of these may prolong the duration of succinylcholine by perhaps 30 minutes. Also, the neostigmine that I had given w/ my reversal can slightly prolong the duration of succinylcholine. I therefore took her to the ICU for recovery while assisting her breathing, waiting for the succinylcholine to metabolize and her to regain full neuromuscular function. In the ICU, she continued to breath at a rate of 15 per minute but still very shallow, requiring assistance. Her pupils were equal, reactive, and not pinpoint. She still had no movement. We gave 1 mg midazolam so that she would not be "awake" but unable to move. She still had 4/4 weak twitches. 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 I therefore decided to reintubate. We gave an additional 1 mg of midazolam and 30 mg propofol and I again easily intubated w/ a 7.0 ETT using the Glidescope. She had positive CO2 change, and equal breath sounds at 21 cm at the teeth. The tube was secured by the RT. I gave report to the precinct police captain present, Dr. Chandler. She was hemodynamically stable throughout this entire process. She remained so w/ sats in the high 90s when I left. Vent management per ICU team. I just saw the pt and she is reportedly starting to move (coughed w/ suctioning) . She is certainly not yet vigorous and is still on the vent. The plan from the ICU team is to leave the patient intubated and mechanically ventilated at least overnight to allow her to fully regain neuromuscular function. When this occurs , she should be able to be extubated. I do not suspect that she developed significant negative pressure pulmonary edema as a result of the laryngospasm since I had no problems w/ hypoxia as long as I was assisting ventilation. I certainly noted to edema fluid in the airway. Also, patients of this age are unlikely to be able to generate sufficient force to cause negative pressure pulmonary edema. I spoke to the pt's daughter on the phone. I explained to her the situation and the plan. I answered her questions. I told her that I would be available in the hospital all night if any other family members wanted an explanation.
--- NOTE | 2017-05-06 20:30 | Critical Care Consultation ---
Critical Care Consultation Date of Consultation: May 06, 2017. Attending Physician: Ap Patel MD Reason for Consultation: Prolonged Recovery S/P Femur Fracture ORIF, Suspicion of Pseudocholinesterase Deficiency after Succinylcholine and reversal with neostigmine History of Present Illness Gracie Oakley is an 86 yo female who first presented to [facility] ED on 05/05/17 for a Right Femur fracture s/p fall from toilet [employer] at [facility]. HPI is collected from medical record as pt is intubated and sedated when presenting to ICU. Pt reported in the ED that she had fallen on right knee; which was previously replaced, and her right shoulder. She denied LOC or head trauma. Patient is on a daily dose of Coumadin. In the emergency department her x-rays demonstrated an acute moderately displaced distal right femoral periprosthetic fracture and an old right ischiopubic ring fracture. Hardware to her right knee replacement was intact, in anatomic alignment and without periprosthetic fracture. Neither fracture or displacement was seen in the right shoulder; however, it demonstrated elevation of the right humeral head suggesting rotator cuff tear as well as severe degenerative changes. Patient was stable and admitted to [facility] for the night. Pt was seen by Iam Kang PA-C and Dr. Muñoz of [facility] who intended to take her to the operating room for ORIF in the AM and recommended placing her in a knee immobilizer. Over the course of the evening the patient was lethargic, sleepy, and had difficulty staying awake to answer questions during examination. Dr. Myles banks was asked to evaluate the patient for her pain management; at which time a new order to not give concurrent pain medication due to oversedation was given. The patient had been being treated with Flexeril and Dilaudid. According to nursing records patient was on room air and saturations were found to be in the high 50s to 60s and 6 L nasal cannula was applied. Patient rebounded to 97% and ultimately maintained on 3 L nasal cannula with an O2 saturation of 94-96%. She did receive vitamin K to decrease INR from 2-1.2 prior to operation. Patient's surgery started at 1403 on 05/06. According to anesthesiology records , due to patient's prior echo in 2014 that noted mild to moderate aortic stenosis and concern for advancement of disease; he opted for general anesthesia as a way to avoid hypotension secondary to spinal anesthesia. She was intubated via glide scope as anesthesiologist noted a protrusion from her hard palate that would make direct laryngoscopy difficult. He stated no difficulty with intubation and that the patient remained hemodynamically stable with 99-100% sats throughout the case. At the end of the case, patient 4/4 twitches on the [id number] and a weight-based dose of neostigmine was given to reverse NMB. Patient began to move, following commands and pulling adequate tidal volume and was therefore extubated. She was suctioned for thick purulent secretions and ultimately noted to cease moving adequate air despite her respiratory effort. Anesthesiologist noted strong laryngeal spasm and attempted to apply positive pressure that did not break spasm; noting her sats began to drop below the 90s. An additional 20 mg of succinylcholine was given to break the spasm and the patient was easily ventilated with sats returning to high 90s. After approximately 15 minutes the patient was still being assisted with breathing as her respiratory effort was extremely shallow. At this time, she was not moving her extremities/eyes or swallowing. The anesthesiologist was suspicious of pseudocholinesterase deficiency. He notes that the prior neostigmine that was given to reverse the first dose of neuromuscular blockade would likely extend her recovery for perhaps 30 minutes. She was taken to the ICU for recovery while assisting her breathing waiting for the succinylcholine to metabolize and for her to regain full function. Patient was given 1mg Versed so that she would not be awake while being unable to move. Patient was noted to have no significant change after 90 minutes from the dose of succinylcholine. It was thought that she would have "homozygous qualitative pseudocholinesterase deficiency; which could take 48 hours or longer to resolve ". Patient received additional 1mg Versed and 30 mg of propofol and was intubated with a 7.0 endotracheal tube 21 cm at the lip with the glide scope. At this time it was planned for the patient to remain in the ICU overnight intubated to allow adequate time for the neuromuscular blockade to metabolize. Vent settings were assist control 14/500/5/40% During my initial examination of the patient she opens her eyes and lips her head off the pillow. She attempts to make an hold I contact; however, she appears to try to follow simple commands but is physically not capable. When asked to give a thumbs up; I can see her fingers move but she does not complete the task. A visit later in the evening showed mild improvement when patient was able to squeeze my fingers and shake her head no to current pain prior to falling back asleep. Patient again does not tolerate pain/sedation medication. When receiving fentanyl postoperatively; it was noted that her systolic blood pressure dropped to the low to mid 70s. She required a fluid bolus and nursing was told at next administration to deliver half the dose. Pt current medical issues significant for vascular dementia, chronic septic pulmonary embolism without acute cor pulmonale, A fib on coumadin, PMR on Prednisone, HTN, GERD, CKD stage III, anemia of chronic disease, multiple vertebral compression fractures, and chronic shoulder pain secondary to rotator cuff tear. Patient is seen routinely by [facility] via retirement visits. ROS is unable to be obtained secondary to patient's sedation, intubation, and condition. Past Medical/Surgical History Medical Problems: Ambulatory disfunction Coronary artery disease Femur fracture Hyperlipidemia PMR (polymyalgia rheumatica) Chronic pulmonary embolism Hypertension Atrial fibrillation GERD Depression Chronic kidney disease, stage III Dementia Hard of hearing Anemia of chronic disease Compression fraction of T 11/12 Chronic rotator cuff arthropathy DJD Surgical history: Bilateral total knee replacements Hip surgery Hysterectomy ORIF right femur Spinal surgery noted per thoracic imaging Family History No pertinent family history Social History Smoking Status: Never Smoker Smokeless Tobacco Use: No Alcohol Use: none Drug Use: none Marital Status: Housing Status: retirement Occupation Status: retired Allergies Coded Allergies: Lisinopril (Verified Allergy, Mild, 05/05/17) Oxycodone (Verified Allergy, Unknown, 05/05/17) Succinylcholine (Verified Adverse Reaction, Severe, pseudocholinesterase deficiency (?homozygous), 05/06/17) paralysis for ~ 3 hours after 20 mg dose Duloxetine (Verified Adverse Reaction, Intermediate, NAUSEA,ANXIETY, ) HMG-CoA-R Inhibitors (Verified Adverse Reaction, Mild, MUSCLE ACHES, ) Morphine (Verified Adverse Reaction, Mild, N & V; 6-13:GAVE IN AMBULANCE W /O REACTION, 05/05/17) Home Medications Scheduled Calcium (Calcium), 1,200 MG PO QAM Cholecalciferol (Vitamin D3), 1 TAB PO DAILY Escitalopram Oxalate (Lexapro), 5 MG PO HS Metoprolol Tartrate (Lopressor), 25 MG PO DAILY Omeprazole (Omeprazole), 20 MG PO DAILY Polyethylene Glycol 3350 (Miralax), 17 GM PO DAILY Prednisone (Prednisone), 3 MG PO DAILY Rosuvastatin Calcium (Crestor), 5 MG PO DAILY Tramadol (Ultram), 50 MG PO HS Warfarin Sodium (Warfarin Sodium), 2.5 MG PO [id number] Warfarin Sodium (Warfarin Sodium), 5 MG PO WK Scheduled PRN Acetaminophen (Tylenol), 650 MG PO Q4 PRN for Mild Pain Aluminum/Magnesium/Simeth (Maalox Max Susp), 30 ML PO ACHS PRN for Indigestion Bisacodyl (Bisac-Evac), 10 MG DE DAILY PRN for Constipation Guaifenesin (Siltussin Sa), 10 ML PO Q4 PRN for Cough Magnesium Hydroxide (Milk Of Magnesia), 30 ML PO DAILY PRN for if no bm x 3 days Menthol-Methyl Salicylate ([place] ([place] Extra Streng), 1 APPLN TOP QID PRN for Pain Sodium Phosphate/Biphosphate (Fleet Enema), 1 EA DE DAILY PRN for Constipation Tramadol (Ultram), 1 TAB PO Q4 PRN for Pain Miscellaneous Medications Nystatin (Nystatin Cream), 0 EXT Current Inpatient Medications Current Inpatient Medications Medications (Trade) Dose Ordered Sig/Nemesio Route Start Time Stop Time Status Last Admin Dose Admin Acetaminophen (Tylenol Tab) 650 mg Q4H PRN PO 05/05/17 16:15 06/04/17 16:14 05/05/17 17:31 650 MG Dextrose/Sodium Chloride 1,000 ml @ 60 mls/hr [id number] IV 05/05/17 18:45 06/04/17 18:44 05/06/17 19:30 60 MLS/HR Tramadol HCl (Ultram Tab) 50 mg Q6H PRN PO 05/05/17 18:45 06/04/17 18:44 05/05/17 19:24 50 MG Acetaminophen 650 mg/Empty Bag 65 ml @ 260 mls/hr Q6H PRN IV 05/05/17 18:45 06/04/17 18:44 Escitalopram Oxalate (Lexapro Tab) 5 mg HS PO 05/05/17 21:00 06/04/17 20:59 05/05/17 21:05 5 MG Metoprolol Tartrate (Lopressor Tab) 25 mg DAILY PO 05/06/17 09:00 06/05/17 08:59 05/06/17 10:13 25 MG Nystatin (Mycostatin Crm) 1 appln BID EXT 05/05/17 21:00 06/04/17 20:59 05/05/17 21:05 1 APPLN Rosuvastatin Calcium (Crestor Tab) 5 mg DAILY PO 05/06/17 09:00 06/05/17 08:59 05/06/17 10:13 5 MG Polyethylene (Miralax Powder Packet) 17 gm DAILY PO 05/06/17 09:00 06/05/17 08:59 Hydromorphone HCl (Dilaudid Inj) 0.5 mg Q6H PRN IV 05/05/17 21:45 05/19/17 21:44 05/06/17 10:13 0.5 MG Hydromorphone HCl (Dilaudid Inj) 1 mg Q4H PRN IV 05/05/17 22:45 05/19/17 22:44 05/06/17 19:19 1 MG Hydrocortisone Sodium Succinate 25 mg/Syringe 0.5 ml @ 4 mls/min Q8H IV 05/06/17 20:30 05/07/17 20:29 05/06/17 19:45 4 MLS/MIN Prednisone (PredniSONE TAB) 3 mg DAILY PO 05/08/17 09:00 06/07/17 08:59 Warfarin Sodium (Coumadin Tab) 2.5 mg SuMoTuWeThFr@1600 PO 05/06/17 18:00 06/05/17 17:59 Warfarin Sodium (Coumadin Tab) 5 mg Sa@1600 PO 05/12/17 16:00 06/11/17 15:59 Cefazolin Sodium 1000 mg/Dextrose 55 ml @ 100 mls/hr Q8H IV 05/06/17 22:00 05/07/17 06:32 Midazolam HCl (Versed Inj) 2 mg Q2H PRN IV 05/06/17 19:15 06/05/17 19:14 Fentanyl Citrate (Fentanyl Inj) 100 mcg Q2H PRN IV 05/06/17 19:15 05/20/17 19:14 Lansoprazole (Prevacid Solutab) 15 mg DAILY PO 05/07/17 09:00 06/06/17 08:59 Review of Systems ROS cannot be obtained secondary to patient condition, sedation, and intubation. Physical Exam Date Time Temp Pulse Resp B/P (MAP) Pulse Ox O2 Delivery O2 Flow Rate FiO2 05/06/17 20:00 64 14 101/49 (66) 98 Mechanical Ventilator 40 05/06/17 19:45 76 14 100/50 (67) 96 Mechanical Ventilator 50 05/06/17 19:35 50 05/06/17 19:30 76 14 92/53 (66) 98 Mechanical Ventilator 40 05/06/17 19:00 72 14 113/51 (71) 97 Mechanical Ventilator 50 05/06/17 18:30 36.7 76 14 108/58 (75) 97 Mechanical Ventilator 50 05/06/17 17:55 36.4 85 14 112/52 97 Mechanical Ventilator 05/06/17 17:45 89 14 123/52 98 Mask 15 05/06/17 17:35 36.4 85 14 158/82 97 Mask 15 05/06/17 17:25 82 14 161/69 97 Mask 15 05/06/17 17:15 81 14 153/68 98 Mask 15 05/06/17 17:05 87 18 154/68 89 Mask 10 05/06/17 16:55 83 18 152/78 95 Mask 10 05/06/17 16:45 36.7 89 18 172/85 94 Mask 10 05/06/17 16:37 36.7 90 18 174/93 94 Mask 10 05/06/17 07:50 98 Nasal Cannula 3.0 05/06/17 07:25 36.6 75 15 131/81 (98) 99 Nasal Cannula 4.0 05/06/17 03:13 36.4 81 16 141/78 (99) 97 Nasal Cannula 3.0 05/05/17 23:31 95 Nasal Cannula 3.0 05/05/17 23:31 37.0 97 16 100/68 (79) 58 Room Air 05/05/17 23:15 Room Air Vital Signs - as noted Laboratory Data - as noted Physical Exam: General - NAD, Sedated on intermittent Versed 2 mg/fentanyl 100 g Eyes - PERRL, No icterus, gaze conjugate ENT - Mucosa dry, no lesions or candidiasis, 7.[address] place to 23 cm & OG tube 55cm at the lip Neck - Supple, trachea midline, no masses or lymphadenopathy, no JVD or bruits Lungs - No paradoxical chest wall movement, clear to auscultation bilaterally, no wheezes, rales, or rhonchi Heart - Reg rate and rhythm, Systolic murmur radiating towards the neck, no rubs , clicks, or gallops appreciated Abdomen -minimal bowel sounds, no bruits noted, tympanic to percussion, soft, nontender, nondistended, no organomegaly Extremities - Pedal Edema noted, pedal pulses intact Neuro - RASS -2, [place] Coma Scale 9 Strength: Could not be assessed, Did note movement of head and left arm as pt attempted to reach for ETT Reflexes: normal and equal CN:PERRL, no facial asymmetry Laboratory Results Last 24 Hours Test 05/06/17 06:09 White Blood Count 10.62 K/uL Red Blood Count 3.73 M/uL Hemoglobin 10.4 g/dL Hematocrit 34.7 % Mean Corpuscular Volume 93.0 fL Mean Corpuscular Hemoglobin 27.9 pg Mean Corpuscular Hemoglobin Concent 30.0 g/dl Platelet Count 240 K/uL Mean Platelet Volume 9.7 fL Neutrophils (%) (Auto) 68.1 % Lymphocytes (%) (Auto) 12.5 % Monocytes (%) (Auto) 12.1 % Eosinophils (%) (Auto) 6.3 % Basophils (%) (Auto) 0.4 % Neutrophils # (Auto) 7.24 K/uL Lymphocytes # (Auto) 1.33 K/uL Monocytes # (Auto) 1.28 K/uL Eosinophils # (Auto) 0.67 K/uL Basophils # (Auto) 0.04 K/uL RDW Standard Deviation 51.8 fL RDW Coefficient of Variation 15.1 % Immature Granulocyte % (Auto) 0.6 % Immature Granulocyte # (Auto) 0.06 K/uL Prothrombin Time 13.0 SECONDS Prothromb Time International Ratio 1.2 Sodium Level 142 mmol/L Potassium Level 4.2 mmol/L Chloride Level 105 mmol/L Carbon Dioxide Level 31 mmol/L Anion Gap 6.0 mmol/L Blood Urea Nitrogen 18 mg/dl Creatinine 1.00 mg/dl Est Creatinine Clear Calc Drug Dose 40.5 ml/min Estimated GFR () 58.3 Estimated GFR (Non- 50.3 BUN/Creatinine Ratio 17.9 Random Glucose 110 mg/dl Calcium Level 8.3 mg/dl Diagnostic Results CHEST ONE VIEW PORTABLE CLINICAL HISTORY: Intubation RESPIRATORY FAILURE COMPARISON STUDY: 05/06/2017 FINDINGS: There is a nasogastric tube which passes into the stomach. There is an endotracheal tube 28 mm above the chantel. The cardiac images so contours remain stable. There is elevation of the right hemidiaphragm. There is continued radiographic evidence of pulmonary vascular congestion/fluid overload.[ IMPRESSION: 1. Interval placement of endotracheal tube 20 mm above the chantel 2. Nasogastric tube within the stomach 3. Persistent elevation right hemidiaphragm 4. Persistent mild pulmonary vascular congestion/fluid overload Electronically signed by: Flaco Rodriguez M.D. 05/06/2017 8:12 PM Dictated Date/Time: 05/06/2017 8:11 PM KUB CLINICAL HISTORY: OGT placement COMPARISON STUDY: 03/30/2014 FINDINGS: There is no pathologic bowel dilatation. There is enteric tube projected over the stomach. Degenerative changes are present within the spine. There is evidence for prior T12 vertebroplasty. IMPRESSION: The enteric tube is visualized with its tip projected over the stomach. Electronically signed by: Flaco Rodriguez M.D. 05/06/2017 7:58 PM Dictated Date/Time: 05/06/2017 7:57 PM INTRAOPERATIVE RIGHT FEMUR 3 VIEWS CLINICAL HISTORY: Fracture. INTERNAL FIXATION COMPARISON: Conventional radiographic study the knee dated 05/05/2017 DISCUSSION: 76 seconds of fluoroscopic time was utilized. There are postsurgical changes of a total right knee arthroplasty. There is evidence for internal fixation of distal femoral fracture with a lateral metallic plate and multiple screws. IMPRESSION: Interval internal fixation of the distal right femoral periprosthetic fracture. Electronically signed by: Flaco Rodriguez M.D. 05/06/2017 4:07 PM Dictated Date/Time: 05/06/2017 4:06 PM RIGHT KNEE 1 OR 2 VIEWS ROUTINE CLINICAL HISTORY: Fall. Right knee pain. COMPARISON: None FINDINGS: There is an oblique moderately displaced distal right femoral fracture that extends to the level of the femoral component of the right knee arthroplasty. Fracture is displaced approximately 1.5 cm. No additional fractures are identified on this examination. IMPRESSION: Acute moderately displaced distal right femoral periprosthetic fracture. Electronically signed by: Berto Vargas M.D. 05/05/2017 3:22 PM Dictated Date/Time: 05/05/2017 3:20 PM CHEST ONE VIEW PORTABLE CLINICAL HISTORY: Fall. COMPARISON STUDY: Chest radiograph October 24, 2014. FINDINGS: Marked elevation of the right hemidiaphragm is unchanged. Right lower lung opacity favors atelectasis. Cardiomegaly is unchanged. There is no pneumothorax or pleural effusion. There is no lobar consolidation. Mild interstitial thickening is unchanged. Elevation of the right humeral head with severe arthritis of the right shoulder is noted. One level vertebral augmentation is incidentally noted. IMPRESSION: No acute cardiopulmonary findings. No change in appearance the chest. Stable mild interstitial thickening. Electronically signed by: Berto Vargas M.D. 05/05/2017 3:33 PM Dictated Date/Time: 05/05/2017 3:31 PM RIGHT PELVIS/UNILATERAL HIP 2-3VIEWS CLINICAL HISTORY: Fall. COMPARISON: CT of the abdomen and pelvis July 24, [address] of the pelvis October 20, 2015.. FINDINGS: Alignment of the total right hip arthroplasty is anatomic. There is no periprosthetic fracture. Old right ischiopubic ring fracture is noted. There is no acute fracture within the pelvis or the hips. Heterotopic ossification adjacent to the femoral component of the right hip arthroplasty is noted. IMPRESSION: 1. No acute fracture within the pelvis or hips. 2. Old right ischiopubic ring fracture. 3. Status post total right hip arthroplasty. Hardware intact with anatomic alignment. No periprosthetic fracture. Electronically signed by: Berto Vargas M.D. 05/05/2017 3:25 PM Dictated Date/Time: 05/05/2017 3:22 PM RIGHT SHOULDER MIN 2 VIEWS ROUTINE CLINICAL HISTORY: Fall. Right shoulder pain. COMPARISON: Right shoulder radiographs May 31, 2015. FINDINGS: Elevation of the right humeral head suggests a chronic rotator cuff tear. There is severe arthritis of the right shoulder. No acute fracture is identified. IMPRESSION: 1. No acute fracture. 2. Elevation of the right humeral head which suggests a chronic rotator cuff tear. 3. Severe degenerative changes of the right shoulder. Electronically signed by: Berto Vargas M.D. 05/05/2017 3:20 PM Dictated Date/Time: 05/05/2017 3:17 PM Assessment & Plan (1) Vascular dementia without behavioral disturbance (2) Atrial fibrillation (3) Chronic kidney disease, stage 3 (4) Anemia of chronic disease (5) Rotator cuff arthropathy (6) Hyperglycemia (7) Gastroesophageal reflux disease (8) Benign hypertension (9) Hyperlipidemia (10) ambulatory disfunction (11) Pulmonary embolism (12) Closed fracture of right distal femur (13) PMR (polymyalgia rheumatica) (14) Coronary artery disease (15) Fall at retirement Neuro: * Patient with minimal respiratory effects after extubation status post neuromuscular blockade reversal. * Suspicion of pseudocholinesterase deficiency after succinylcholine * Patient remained sedated and intubated overnight to allow neuromuscular blockade to metabolize * [place] Coma Scale of 9 * Sedated to RASS -2 * Versed 2mg q2 PRN * Fentanyl 50 mcg q2 PRN: Patient originally given 100mcg and noted to become hypotensive (SBP mid 70's); secondary to mild to moderate aortic stenosis will lower dosage to allow for minimum SBP of 100. Patient's chest x-ray now demonstrates pulmonary vascular congestion; thus a smaller 250 mL bolus was given. Patient rebounded to normotensive. * Plan to wean sedation in order to attempt extubation after weaning trial planned for 0500 * Will order plasma cholinesterase & Dibucaine level after neuromuscular blockade has resolved Respiratory: * Patient noted as above in neuro to have minimal respiratory effect after extubation and was re-intubated via glides scope with a 7.0 tube * During the course of the evening patient's end tidal CO2 was slightly above normal demonstrating hypoventilation; VB. * Patient's respiratory was increased from 14-16; per respiratory protocol * Will repeat VBG with morning labs * AC 16/500/5/30% * Plan to extubate in morning * Obtain RSBI <105, NIF < - 20, forced vital capacity greater than 10 * Wean at 0500 03/30 * Reviewed outpt records, could not find additional information regarding hx/o Chronic P.E. * Prior CXR demonstrated Congestion: Repeat AM * Monitor on telemetry MSK/POD # 0 ORIF of Right Femure Fx: * Hemodynamically Stable: EBL 200mL * Right Leg Immobilizer in place * 2 drains placed to hemovac in place * Pt sedated currently as mentioned in Neuro * Dr. Muñoz's input appreciated * Hydrocortisone 50mg IV one dose 1 hour prior to surgery, then 25mg IV q8h x 1 day, then resume usual Prednisone 3mg daily * Plan for PT/OT s/p fall Cardiac: * Mild to Mod Stenosis noted on ECHO in 2014 * Avoid Hypotension: SBP >100 * Troponin Negative x 1 * Continue home cardiac medications * Lopressor 25mg PO q Daily * Crestor 5mg PO q Daily * Warfarin per outpt regimen: Monitor PT/INR daily * Monitor on telemetry * Currently NSR * Reviewed outpt records, could not find additional information regarding hx/o A. Fib : * D5WNSS @ 60 * Pt rcv'd 250mL bolus during hypotensive event status post sedation medication in ICU * Pt 1.3L positive today * Consider Lasix in AM, if UOP is not improved * Goal even I&Os * @ Baseline Cr of 1.0 * Monitor Daily labs * Rodriguez to gravity Endocrine: * No known diagnosis of DM or Thyroid disorders * Out Pt Labs: TSH 1.08, Glucose WNL * Obtain A1C * Accu-checks Range: 105-191 * SSI with Novolog ordered without carb coverage: Pt NPO but post surgical on steroids GI: * NPO: Intubation planned for < 24hrs * OG tube placed * Bedside dysphagia once extubated * Continue pts home Miralax: (Multiple Laxatives within home med list: Reviewed) * Continue home PPI: if weaning trial fails convert to IV for stress ulcer prophylaxis Heme: * Pt rcv'd Vit K to decrease INR * Monitor INR, Warfarin restarted now * H&H: 10.4/34.7; Plts 240 * 200mL EBL ID: * WBCs: WNL (10.62) * Afebrile * Urine suspicious of infection versus asymptomatic bacteruria: No nitrites noted on Urinalysis * Culture pending: Pin point growth present; re-incubating (Last known UTI 2014 E. Coli Gabriel Sensitive) * D/C Rodriguez Catheter as early as possible * Ancef 2g perioperatively for prophylaxis. Access: [address], No indication currently for central/arterial access CCT: 60 minutes; Not including any billable procedures. Thank you for including us in the care of this patient. Please review Dr. Bright Chandler's addendum for further recommendations. I have personally evaluated and examined this patient. I agree with assessment and plan of Marilin Barron PA-C. Post-op respiratory insufficiency, given Anectine for laryngospasm, and had prolonged muscle weakness. Testing would need to occur after complete resolution of neuro-muscular blockade. Met extubation criteria in early AM, extubated successfully.
[2017-05-06] MEDS: FENTANYL CITRATE INJ 50 MCG/1 ML 2 ML VIAL IV PRN ×2 (20:44→22:40)
[2017-05-06] MEDS: WARFARIN SOD 2.5 MG TAB PO SCH (20:45)
[2017-05-06] MEDS: ESCITALOPRAM OXALATE 10 MG TAB PO SCH (20:48)
[2017-05-06] MEDS: MIDAZOLAM HCL 5 MG/ML 1 ML VIAL IV PRN (22:40)
[2017-05-06] MEDS: CEFAZOLIN IV 1,000 MG in DEXTROSE 5% 50ML 50 ML IV SCH (22:49)
[2017-05-06 22:50] LABS: VEN BLD GAS O2 SATURATION < 60.0 %; VEN BLOOD GAS BASE EXCESS 2.3 mmol/L; VENOUS BLOOD GAS PCO2 66 mmHg (38.0-50.0); VENOUS BLOOD GAS PO2 25 mmHg
[2017-05-06] MEDS ORDERED: SODIUM CHLORIDE 0.9% 250ML 250 ML IV SCH (23:30)
[2017-05-07] VITALS (32 sets, daily range): BP systolic 96–135; BP diastolic 50–90; PULSE 71–103; TEMP 36.6–37.2; O2SAT 92–98
[2017-05-07] MEDS: MIDAZOLAM HCL 5 MG/ML 1 ML VIAL IV PRN (01:45)
[2017-05-07] MEDS: HYDROCORTISONE IV 25 MG in SYRINGE 0 ML IV SCH ×3 (04:07→20:29)
[2017-05-07] MEDS ORDERED: CEFAZOLIN IV 2,000 MG/60 ML D5W IV ONE (06:00)
[2017-05-07 06:13] LABS: BASO % 0.1 %; BASO ABS # 0.01 K/uL (0-0.2); EOS % 0.1 %; HEMATOCRIT 28.9 % (37-47); IG% 0.3 %; LYMPH % 8.3 %; MEAN CELL VOLUME 92.6 fL (80-100); MEAN CORPUSCULAR HEMOGLOBIN 28.5 pg (25-34); MEAN CORPUSCULAR HGB CONC 30.8 g/dl (32-36); MEAN PLATELET VOLUME 9.7 fL (7.4-10.4); MONO % 3.1 %; NEUT % 88.1 %; PLATELET COUNT 205 K/uL (130-400); RED BLOOD COUNT 3.12 M/uL (4.2-5.4)
[2017-05-07 06:17] LABS: VEN BLD GAS O2 SATURATION 73.6 %; VEN BLOOD GAS BASE EXCESS 3.2 mmol/L
[2017-05-07 06:22] LABS: INR 1.1 (0.9-1.1); PROTHROMBIN TIME (PATIENT) 11.4 SECONDS (9.0-12.0)
[2017-05-07] MEDS: CEFAZOLIN IV 1,000 MG in DEXTROSE 5% 50ML 50 ML IV SCH (06:30)
[2017-05-07 06:42] LABS: COMPLETE YES
[2017-05-07 06:51] LABS: BUN/CREATININE RATIO 17.7 (10-20); CALCIUM 8.2 mg/dl (8.5-10.1); MAGNESIUM 1.9 mg/dl (1.8-2.4); PHOSPHORUS 2.7 mg/dl (2.5-4.9); POTASSIUM 4.5 mmol/L (3.5-5.1)
--- NOTE | 2017-05-07 07:16 | DIAGNOSTIC IMAGING REPORT ---
CHEST ONE VIEW PORTABLE CLINICAL HISTORY: Intubated tube position COMPARISON STUDY: 05/06/2017 FINDINGS: Interval extubation. Interval removal of nasogastric tube. Slightly improved findings of pulmonary vascular congestion. Chronic elevation right hemidiaphragm. IMPRESSION: 1. Interval extubation. Interval removal of the nasogastric tube. Slight improvement in baseline findings of pulmonary vascular congestion. Electronically signed by: Iam De Leon M.D. 05/07/2017 7:14 AM Dictated Date/Time: 05/07/2017 7:13 AM
[2017-05-07] MEDS: HYDROmorphone INJ 1 MG/ML SYR IV PRN ×2 (07:44→18:02)
[2017-05-07] MEDS: INSULIN ASPART 100 UNITS/ML 3 ML PEN SC SCH ×4 (08:40→20:32)
[2017-05-07] MEDS: POLYETHYLENE (MIRALAX) 17 GM PACK PO SCH (08:41)
[2017-05-07] MEDS: METOPROLOL TARTRATE 25 MG TAB PO SCH (08:41)
[2017-05-07] MEDS ORDERED: LANSOPRAZOLE SOLUTAB 15 MG PO SCH (09:00)
[2017-05-07] MEDS ORDERED: HYDROmorphone INJ 1 MG/ML SYR IV PRN (09:15)
[2017-05-07] MEDS: PANTOprazole SOD 40 MG TAB PO SCH (09:57)
[2017-05-07] MEDS: ROSUVASTATIN CALCIUM 5 MG TAB PO SCH (09:57)
[2017-05-07] MEDS: NYSTATIN CR 15 GM TUBE EXT SCH ×2 (09:57→20:31)
--- NOTE | 2017-05-07 10:41 | Orthopedic Progress Note ---
Orthopedic Progress Note Date of Service May 07, 2017. Subjective Post OP Day: 1 Additional Notes: Pt sleeping. Able to awaken briefly. Was just given Dilaudid for pain control. Does move her toes when asked. Objective dressing C/D/I, toes mobile Moving toes when asked. Sensation appears intact. Immobilizer on. Dressing clean under immobilizer. Date Time Temp Pulse Resp B/P (MAP) Pulse Ox O2 Delivery O2 Flow Rate FiO2 05/07/17 09:02 95 19 104/50 (68) 98 Oxymask 6.0 05/07/17 08:02 37.2 91 17 96/53 (67) 92 Nasal Cannula 3.0 05/07/17 08:00 Mask 5.0 05/07/17 07:32 100 16 135/74 (94) 95 Oxymask 5.0 05/07/17 07:03 103 16 116/90 (99) 94 Oxymask 5.0 05/07/17 06:09 87 16 122/63 (82) 97 Oxymask 4.0 05/07/17 05:00 50 05/07/17 04:32 86 16 117/61 (79) 95 05/07/17 04:17 89 17 128/54 (78) 95 05/07/17 04:02 36.9 88 16 106/55 (72) 96 05/07/17 04:00 95 Mechanical Ventilator 40 05/07/17 04:00 30 05/07/17 03:47 83 16 126/60 (82) 96 05/07/17 03:32 87 16 134/64 (87) 97 05/07/17 03:17 83 16 133/73 (93) 96 05/07/17 03:02 86 16 134/65 (88) 96 05/07/17 02:47 81 16 129/69 (89) 96 05/07/17 02:32 83 16 130/72 (91) 96 05/07/17 02:21 50 05/07/17 02:17 81 16 125/63 (83) 95 05/07/17 02:02 82 16 126/57 (80) 95 05/07/17 01:47 89 17 132/81 (98) 96 05/07/17 01:17 75 16 125/58 (80) 95 05/07/17 01:02 73 16 117/58 (77) 95 05/07/17 00:47 75 16 120/59 (79) 95 05/07/17 00:32 71 16 107/54 (71) 95 05/07/17 00:17 71 16 107/56 (73) 94 05/07/17 00:02 36.6 71 16 114/52 (72) 94 Mechanical Ventilator 30 05/07/17 00:00 95 Mechanical Ventilator 40 05/07/17 00:00 30 05/06/17 23:30 72 14 97/48 (64) 95 Mechanical Ventilator 30 05/06/17 23:00 73 14 77/40 (52) 95 Mechanical Ventilator 30 05/06/17 22:55 50 05/06/17 22:15 70 14 129/67 (87) 97 Mechanical Ventilator 40 05/06/17 21:15 62 14 93/46 (62) 97 Mechanical Ventilator 40 05/06/17 21:00 61 14 83/38 (53) 99 Mechanical Ventilator 40 05/06/17 20:45 65 14 118/60 (79) 99 Mechanical Ventilator 40 05/06/17 20:30 63 14 113/54 (73) 98 Mechanical Ventilator 40 05/06/17 20:15 64 14 93/55 (68) 98 Mechanical Ventilator 40 05/06/17 20:00 64 14 101/49 (66) 98 Mechanical Ventilator 40 05/06/17 20:00 98 Mechanical Ventilator 40 05/06/17 20:00 40 05/06/17 19:45 76 14 100/50 (67) 96 Mechanical Ventilator 40 05/06/17 19:35 50 05/06/17 19:30 76 14 92/53 (66) 98 Mechanical Ventilator 40 05/06/17 19:00 72 14 113/51 (71) 97 Mechanical Ventilator 50 05/06/17 18:30 36.7 76 14 108/58 (75) 97 Mechanical Ventilator 50 05/06/17 17:55 36.4 85 14 112/52 97 Mechanical Ventilator 05/06/17 17:45 89 14 123/52 98 Mask 15 05/06/17 17:35 36.4 85 14 158/82 97 Mask 15 05/06/17 17:25 82 14 161/69 97 Mask 15 05/06/17 17:15 81 14 153/68 98 Mask 15 05/06/17 17:05 87 18 154/68 89 Mask 10 05/06/17 16:55 83 18 152/78 95 Mask 10 05/06/17 16:45 36.7 89 18 172/85 94 Mask 10 05/06/17 16:37 36.7 90 18 174/93 94 Mask 10 Laboratory Results 24 Hours: Test 05/07/17 05:59 White Blood Count 14.40 K/uL Red Blood Count 3.12 M/uL Hemoglobin 8.9 g/dL Hematocrit 28.9 % Mean Corpuscular Volume 92.6 fL Mean Corpuscular Hemoglobin 28.5 pg Mean Corpuscular Hemoglobin Concent 30.8 g/dl Platelet Count 205 K/uL Mean Platelet Volume 9.7 fL Neutrophils (%) (Auto) 88.1 % Lymphocytes (%) (Auto) 8.3 % Monocytes (%) (Auto) 3.1 % Eosinophils (%) (Auto) 0.1 % Basophils (%) (Auto) 0.1 % Neutrophils # (Auto) 12.69 K/uL Lymphocytes # (Auto) 1.20 K/uL Monocytes # (Auto) 0.45 K/uL Eosinophils # (Auto) 0.01 K/uL Basophils # (Auto) 0.01 K/uL Prothromb Time International Ratio 1.1 Prothrombin Time 11.4 SECONDS Assessment & Plan Assessment: POD 1 ORIF Right Periprosthetic femur fracture s/p right tka Plan: NWB RLE with Immobilizer PT/OT when able Inhouse Planning Pain Management: Ultram, Dilaudid, PO Tylenol DVT Prophylaxis: TEDs, SCDs, Coumadin Additional Notes: Planning for SQ Heparin to bridge with Coumadin starting 24 hours post op. Discharge Planning Discharge Planning: [facility] facility
--- NOTE | 2017-05-07 10:52 | Progress Note ---
Medicine Progress Note Date & Time of Visit: May 07, 2017 at 10:45. Subjective patient seen resting in bed on oxygen mask drowsy but easily rousable pleasantly confused, tries to answer questions, no respiratory distress/ accessory muscle use denies chest pain, dyspnea, palpitations no other symptoms Objective Last 8 Hrs Date Time Temp Pulse Resp B/P (MAP) Pulse Ox O2 Delivery O2 Flow Rate FiO2 05/07/17 09:02 95 19 104/50 (68) 98 Oxymask 6.0 05/07/17 08:02 37.2 91 17 96/53 (67) 92 Nasal Cannula 3.0 05/07/17 08:00 Mask 5.0 05/07/17 07:32 100 16 135/74 (94) 95 Oxymask 5.0 05/07/17 07:03 103 16 116/90 (99) 94 Oxymask 5.0 05/07/17 06:09 87 16 122/63 (82) 97 Oxymask 4.0 05/07/17 05:00 50 05/07/17 04:32 86 16 117/61 (79) 95 05/07/17 04:17 89 17 128/54 (78) 95 05/07/17 04:02 36.9 88 16 106/55 (72) 96 05/07/17 04:00 95 Mechanical Ventilator 40 05/07/17 04:00 30 05/07/17 03:47 83 16 126/60 (82) 96 05/07/17 03:32 87 16 134/64 (87) 97 05/07/17 03:17 83 16 133/73 (93) 96 05/07/17 03:02 86 16 134/65 (88) 96 05/07/17 02:47 81 16 129/69 (89) 96 Physical Exam: General- oriented x 2, not in distress, speaks in sentences with no effort Eyes- anicteric ENT- dry oral mucosa Neck- no JVD Lungs- mild rales bilateral bases, no wheezing Heart- regular rhythm; no murmur, normal rate Abdomen- normal bowel sounds, soft, nontender, Extremities- right leg with soft brace/chavo wrap on, no bipedal edema Neuro- alert, oriented x 1; no gross focal deficits Skin- warm & dry Laboratory Results: Last 24 Hours Test 6/11/17 20:27 05/06/17 22:43 05/07/17 05:59 Bedside Glucose 191 mg/dl Venous Blood pH 7.28 7.37 Venous Blood Partial Pressure CO2 66 mmHg 51 mmHg Venous Blood Partial Pressure O2 25 mmHg 38 mmHg Venous Blood HCO3 30 mmol/L 29 mmol/L Venous Blood Oxygen Saturation < 60.0 % 73.6 % Venous Blood Base Excess 2.3 mmol/L 3.2 mmol/L White Blood Count 14.40 K/uL Red Blood Count 3.12 M/uL Hemoglobin 8.9 g/dL Hematocrit 28.9 % Mean Corpuscular Volume 92.6 fL Mean Corpuscular Hemoglobin 28.5 pg Mean Corpuscular Hemoglobin Concent 30.8 g/dl Platelet Count 205 K/uL Mean Platelet Volume 9.7 fL Neutrophils (%) (Auto) 88.1 % Lymphocytes (%) (Auto) 8.3 % Monocytes (%) (Auto) 3.1 % Eosinophils (%) (Auto) 0.1 % Basophils (%) (Auto) 0.1 % Neutrophils # (Auto) 12.69 K/uL Lymphocytes # (Auto) 1.20 K/uL Monocytes # (Auto) 0.45 K/uL Eosinophils # (Auto) 0.01 K/uL Basophils # (Auto) 0.01 K/uL RDW Standard Deviation 50.9 fL RDW Coefficient of Variation 15.0 % Immature Granulocyte % (Auto) 0.3 % Immature Granulocyte # (Auto) 0.04 K/uL Red Blood Cell Morphology Unremarkable Prothrombin Time 11.4 SECONDS Prothromb Time International Ratio 1.1 Sodium Level 140 mmol/L Potassium Level 4.5 mmol/L Chloride Level 105 mmol/L Carbon Dioxide Level 29 mmol/L Anion Gap 6.0 mmol/L Blood Urea Nitrogen 18 mg/dl Creatinine 1.00 mg/dl Est Creatinine Clear Calc Drug Dose 42.1 ml/min Estimated GFR () 58.3 Estimated GFR (Non- 50.3 BUN/Creatinine Ratio 17.7 Random Glucose 126 mg/dl Calcium Level 8.2 mg/dl Phosphorus Level 2.7 mg/dl Magnesium Level 1.9 mg/dl Date/Time Source Procedure Growth Status 05/06/17 18:35 Nasal MRSA DNA Surveillance Screen - Final Specimen Negative for MRSA by DNA Probe Complete Assessment & Plan 86 year old female, resident of [facility], with history of Dementia, Pulmonary Embolism, A fib on coumadin, PMR on Prednisone, HTN, GERD, CKD, presenting with fall and right leg pain. RIGHT FEMORAL FRACTURE S/P MECHANICAL FALL - post op day 1 [facility] l[facility] - extubated 05/07/17 wean off oxygen mask - appreciate ICU service input - coumadin resumed may start Heparin for DVT prophylaxis 24 hours post surgery per Ortho SVC holding usual 3mg Prednisone, given Hydrocortisone 50mg IV one dose 1 hour prior to surgery, then 25mg IV q8h for 1 day will assess hemodynamics tonight and may d/c Hydrocortisone resume usual Prednisone 3mg daily tomorrow - PRN Dilaudid and Tramadol IV fluids ASYMPTOMATIC BACTERIURIA - urine culture gram positive coccis received Cephazolin afebrile, mild leukocytosis monitor HISTORY OF PULMONARY EMBOLISM ON COUMADIN - last episode at least > 5 years from now - coumadin resumed may start Heparin for DVT prophylaxis 24 hours post surgery per Ortho [facility]VC HISTORY OF ATRIAL FIBRILLATION ON COUMADIN - currently sinus rhythm - continue Metoprolol management of coumadin as noted above POLYMYALGIA RHEUMATICA, ON CHRONIC PREDNISONE holding usual 3mg Prednisone, given Hydrocortisone 50mg IV one dose 1 hour prior to surgery, then 25mg IV q8h today will assess hemodynamics tonight and march d/c Hydrocortisone resume usual Prednisone 3mg daily tomorrow GERD continue PPI CKD stable DEMENTIA stable DVT PROPH coumadin CODE STATUS DNR per [facility] records DISPO anticipate return to [facility] when cleared by Ortho Current Inpatient Medications: Current Inpatient Medications Medications (Trade) Dose Ordered Sig/Nemesio Route Start Time Stop Time Status Last Admin Dose Admin Acetaminophen (Tylenol Tab) 650 mg Q4H PRN PO 05/05/17 16:15 06/04/17 16:14 05/05/17 17:31 650 MG Dextrose/Sodium Chloride 1,000 ml @ 60 mls/hr [id number] IV 05/05/17 18:45 06/04/17 18:44 05/06/17 19:30 60 MLS/HR Tramadol HCl (Ultram Tab) 50 mg Q6H PRN PO 05/05/17 18:45 06/04/17 18:44 05/05/17 19:24 50 MG Escitalopram Oxalate (Lexapro Tab) 5 mg HS PO 05/05/17 21:00 06/04/17 20:59 05/06/17 20:48 5 MG Metoprolol Tartrate (Lopressor Tab) 25 mg DAILY PO 05/06/17 09:00 06/05/17 08:59 05/06/17 10:13 25 MG Nystatin (Mycostatin Crm) 1 appln BID EXT 05/05/17 21:00 06/04/17 20:59 05/07/17 09:57 1 APPLN Rosuvastatin Calcium (Crestor Tab) 5 mg DAILY PO 05/06/17 09:00 06/05/17 08:59 05/06/17 10:13 5 MG Polyethylene (Miralax Powder Packet) 17 gm DAILY PO 05/06/17 09:00 06/05/17 08:59 Hydrocortisone Sodium Succinate 25 mg/Syringe 0.5 ml @ 4 mls/min Q8H IV 05/06/17 20:30 05/07/17 20:29 05/07/17 04:07 4 MLS/MIN Prednisone (PredniSONE TAB) 3 mg DAILY PO 05/08/17 09:00 06/07/17 08:59 Warfarin Sodium (Coumadin Tab) 2.5 mg SuMoTuWeThFr@1600 PO 05/06/17 18:00 06/05/17 17:59 05/06/17 20:45 2.5 MG Warfarin Sodium (Coumadin Tab) 5 mg Sa@1600 PO 05/12/17 16:00 06/11/17 15:59 Insulin Aspart (novoLOG ASPART) SLIDING SCALE G... ACHS SC 05/07/17 06:45 06/06/17 06:44 Hydromorphone HCl (Dilaudid Inj) FOR PAIN 0.3-0.5 MG 0.3 MG ... Q4H PRN IV 05/07/17 09:15 05/21/17 09:14 Pantoprazole Sodium (Protonix Tab) 40 mg QAM PO 05/07/17 09:00 06/06/17 08:59 Acetaminophen 100 ml @ 400 mls/hr Q8H IV 05/07/17 12:00 05/09/17 11:59
[2017-05-07] MEDS: ACETAMINOPHEN IV 1000MG/100ML IV SCH ×2 (11:44→19:41)
--- NOTE | 2017-05-07 12:59 | CRITICAL CARE PROGRESS NOTE ---
DATE: 05/07/2017 SUBJECTIVE: This is an 86-year-old woman admitted to the hospital on May 05 after a fall from [facility]. She suffered a right femoral fracture and underwent ORIF of the right femur yesterday. Postoperatively, her postoperative course was complicated by requiring reintubation for laryngospasm, for which she was given succinylcholine. She had a prolonged recovery time after the succinylcholine was given and at this point, the theory is that she may have a cholinesterase deficiency. Labs are pending. She was extubated this morning prior to my arrival in the ICU. Dr. Chandler had evaluated her prior to that. Her care was discussed in detail on multidisciplinary rounds. Of note, she was screaming this morning and seemed to be in pain. She was treated with 0.5 mg of IV Dilaudid and has been very drowsy since that time. PHYSICAL EXAMINATION: VITAL SIGNS: Maximum temperature 36, heart rate 81-87, respiratory rate 16-20, blood pressure 106-128/50s-70s and on 6 liter OxyMask. 24-hour fluid balance is positive 1.3 liters. GENERAL: This morning prior to her Dilaudid, she was awake, hard of hearing and confused. Her subsequent examination was done after she had received the Dilaudid. NEUROLOGIC: She will awaken and whisper some words, but does not follow any commands. She is able to cough and withdraw to pain with all 4 extremities. LUNGS: Have decreased breath sounds throughout with poor inspiratory effort. HEART: Regular rate and rhythm. ABDOMEN: Soft, nontender, and nondistended. EXTREMITIES: Show the right leg to be in a knee immobilizer with an Manolo bandage underneath it. There is a drain protruding from the area. The right foot and toes have about 1+ edema. The right leg has 1+ edema. The left foot is warm and has no edema. LABORATORY DATA: Sodium 140, potassium 4.5, chloride 105, CO2 of 29, BUN 18, creatinine 1, calcium 8.2, phosphorous 2.7, and magnesium 1.9. White blood cell count 14.4, hemoglobin 8.9, hematocrit 28.9, and platelet count 205. INR 1.1. Urinalysis on May 05, small leukocyte esterase, greater than 30 white blood cells. MICROBIOLOGY: Urine culture is positive for gram positive cocci, sensitivity to follow. MEDICATIONS: Acetaminophen, D5 normal saline with potassium at 60 mL per hour, Lexapro, hydrocortisone, Dilaudid, insulin, Lopressor, Nystatin, prednisone, Protonix, MiraLax, Crestor, tramadol, and Coumadin. IMAGING STUDIES: Portable chest x-ray from this morning shows slight improvement in baseline findings of pulmonary vascular congestion. IMPRESSION: 1. Postoperative day #1 status post ORIF of the right femur. 2. Acute anemia, no signs of active bleeding; however, the right leg is a bit difficult to assess postoperatively. 3. Metabolic encephalopathy with a history of dementia. The Dilaudid has also made her very drowsy and could be contributing. 4. History of polymyalgia rheumatica on chronic steroids, presently on hydrocortisone taper. 5. History of pulmonary embolism, for which she takes Coumadin, which has been resumed. 6. Gram positive cocci urinary tract infection, not presently on antibiotics. 7. History of atrial fibrillation. 8. History of hypertension. 9. History of chronic kidney disease. 10. Hard of hearing. 11. History of coronary artery disease. PLAN: NEUROLOGIC: I decreased her Dilaudid dosing to 0.3 mg q. 6 hours and this should only be given for severe pain. Acetaminophen IV was started q. 6 hours scheduled for the next 48 hours. Fentanyl was discontinued. She has tramadol for pain as well, which she takes as an outpatient. PULMONARY: She will need to start incentive spirometry if she is able to understand and participate with this. Getting her out of bed should help with her pulmonary toilet. CARDIOVASCULAR: Continue Lopressor, although this was held this morning secondary to some hypotension after her Dilaudid. RENAL: No acute active issues. Consider discontinuing her normal saline when she is more awake and can take p.o. HEMATOLOGY: Recheck the hemoglobin later today. INFECTIOUS DISEASE: Begin Rocephin and give 1 dose of vancomycin until sensitivities are back for the urinary tract infection. ENDOCRINE: Continue hydrocortisone taper and begin prednisone tomorrow. GASTROINTESTINAL: Advance diet when she is awake and alert. Discontinue Prevacid and Protonix was resumed. GENERAL: Physical therapy and occupational therapy. MTDD
--- NOTE | 2017-05-07 13:20 | Clinical Documentation Query ---
CLINICAL DOCUMENTATION QUERY 86 year old female who has undergone ORIF of right femur. After surgery she had difficulty with breathing on own and had to be reintubated and remained on mechanical ventilator overnight. In your clinical opinion is this patient being managed for: ( x ) Acute respiratory failure due to laryngeal spasm ( x ) Acute respiratory failure due to POSSIBLE pseudocholinesterase deficiency ( ) Other explanation of clinical findings (Please Explain) ( ) Unable to determine (Please Define) ( ) Need to Discuss ( ) Not Agree The medical record reflects the following clinical findings, treatment, and risk factors. 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 noted to cease to move adequate air. Sats dropping below 90. Treatment: reintubated after surgery and mechanically ventilated overnight. Risk Factors: Age, succinylcholine therapy, irritation of natural airway. Please clarify and document your clinical opinion in the progress notes and discharge summary. Terms such as "probable", "suspected", "likely", "questionable", "possible", or "still to be ruled out" are acceptable. IF IN AGREEMENT, YOU MUST DOCUMENT ABOVE DIAGNOSTIC STATEMENT IN DAILY PROGRESS NOTES AND DISCHARGE SUMMARY. This document is not part of the patient's record. Thank You, Jaquan Vazquez, RN [phone]
--- NOTE | 2017-05-07 13:21 | Clinical Documentation Query ---
CLINICAL DOCUMENTATION QUERY 86 year old female who has undergone ORIF of right femur. After surgery she had difficulty with breathing on own and had to be reintubated and remained on mechanical ventilator overnight. In your clinical opinion is this patient being managed for: ( ) Acute respiratory failure due to laryngeal spasm ( ) Acute respiratory failure due to pseudocholinesterase deficiency 2/2 receiving succinylcholine ( ) Other explanation of clinical findings (Please Explain) ( ) Unable to determine (Please Define) ( ) Need to Discuss ( ) Not Agree The medical record reflects the following clinical findings, treatment, and risk factors. 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 noted to cease to move adequate air. Sats dropping below 90. Treatment: reintubated after surgery and mechanically ventilated overnight. Risk Factors: Age, succinylcholine therapy, irritation of natural airway. Please clarify and document your clinical opinion in the progress notes and discharge summary. Terms such as "probable", "suspected", "likely", "questionable", "possible", or "still to be ruled out" are acceptable. IF IN AGREEMENT, YOU MUST DOCUMENT ABOVE DIAGNOSTIC STATEMENT IN DAILY PROGRESS NOTES AND DISCHARGE SUMMARY. This document is not part of the patient's record. Thank You, Jaquan Vazquez, YADIEL [phone]
[2017-05-07] MEDS ORDERED: CEFTRIAXONE SOD INJ 1 GM in DEXTROSE 5% ADD-VANTAGE 50ML 50 ML IV SCH (14:00)
[2017-05-07] MEDS ORDERED: VANCOMYCIN CONSULT ACTIVE PRN (14:00)
[2017-05-07] MEDS ORDERED: VANCOMYCIN INJ 2,000 MG in SODIUM CHLORIDE 0.9% 500ML 500 ML IV ONE (15:00)
[2017-05-07] MEDS: WARFARIN SOD 2.5 MG TAB PO SCH (15:42)
[2017-05-07 16:24] LABS: HEMATOCRIT 26.1 % (37-47)
[2017-05-07] MEDS: TRAMADOL HCL 50 MG TAB PO PRN (16:42)
[2017-05-07] MEDS: D5W AND NSS 1,000 ML IV SCH (16:51)
[2017-05-07] MEDS ORDERED: NURSING VERBAL MED ORDER ONE (19:15)
[2017-05-07] MEDS ORDERED: HYDROmorphone INJ 1 MG/ML SYR IV STA (19:29)
[2017-05-07] MEDS: ESCITALOPRAM OXALATE 10 MG TAB PO SCH (20:30)
[2017-05-07 22:24] LABS: HEMATOCRIT 24.5 % (37-47)
[2017-05-07] MEDS ORDERED: FUROSEMIDE INJ 20 MG in SYRINGE 0 ML IV PRN (22:45)
[2017-05-08] VITALS (19 sets, daily range): BP systolic 100–137; BP diastolic 63–78; PULSE 77–104; TEMP 36.3–37; O2SAT 91–99
[2017-05-08] MEDS: ACETAMINOPHEN IV 1000MG/100ML IV SCH ×2 (04:17→13:38)
[2017-05-08] MEDS: HYDROCORTISONE IV 25 MG in SYRINGE 0 ML IV SCH (04:18)
[2017-05-08] MEDS: TRAMADOL HCL 50 MG TAB PO PRN ×2 (05:32→19:55)
[2017-05-08 06:26] LABS: BASO % 0.1 %; BASO ABS # 0.01 K/uL (0-0.2); EOS % 0.1 %; HEMATOCRIT 27.4 % (37-47); IG% 0.2 %; LYMPH % 8.5 %; LYMPH ABS # 1.13 K/uL (1.2-3.4); MEAN CELL VOLUME 90.1 fL (80-100); MEAN CORPUSCULAR HEMOGLOBIN 27.3 pg (25-34); MEAN CORPUSCULAR HGB CONC 30.3 g/dl (32-36); MEAN PLATELET VOLUME 9.3 fL (7.4-10.4); MONO % 12.7 %; NEUT % 78.4 %; PLATELET COUNT 189 K/uL (130-400); RED BLOOD COUNT 3.04 M/uL (4.2-5.4); WHITE BLOOD COUNT 13.34 K/uL (4.8-10.8)
[2017-05-08 06:35] LABS: INR 1.1 (0.9-1.1)
[2017-05-08] MEDS: INSULIN ASPART 100 UNITS/ML 3 ML PEN SC SCH ×2 (07:00→11:00)
[2017-05-08 07:01] LABS: BUN/CREATININE RATIO 18.9 (10-20); CALCIUM 7.9 mg/dl (8.5-10.1); CREATININE 0.84 mg/dl (0.60-1.20); POTASSIUM 3.9 mmol/L (3.5-5.1)
[2017-05-08 07:13] LABS: COMPLETE YES
--- NOTE | 2017-05-08 07:41 | Pharmacy Progress Note ---
Pharmacy Antibiotic Consult Date of Service: May 08, 2017. Pharmacy Dosing Scope Pharmacy is consulted to initiate Vancomycin IV dosing therapy, order appropriate labs and adjust drug dose/frequency. Subjective The patient is a 86 year old female admitted on May 05, 2017 at 16:09. Objective Height (Feet): 5 Height (Inches): 6.00 Weight (Kilograms): 81.700 Lab Results (24hrs): Test 05/07/17 20:16 05/07/17 22:12 05/08/17 06:10 05/08/17 06:33 Bedside Glucose 106 mg/dl (70-90) 115 mg/dl (70-90) Hemoglobin 7.3 g/dL (12.0-16.0) 8.3 g/dL (12.0-16.0) Hematocrit 24.5 % (37-47) 27.4 % (37-47) White Blood Count 13.34 K/uL (4.8-10.8) Red Blood Count 3.04 M/uL (4.2-5.4) Mean Corpuscular Volume 90.1 fL (80-100) Mean Corpuscular Hemoglobin 27.3 pg (25-34) Mean Corpuscular Hemoglobin Concent 30.3 g/dl (32-36) Platelet Count 189 K/uL (130-400) Mean Platelet Volume 9.3 fL (7.4-10.4) Neutrophils (%) (Auto) 78.4 % Lymphocytes (%) (Auto) 8.5 % Monocytes (%) (Auto) 12.7 % Eosinophils (%) (Auto) 0.1 % Basophils (%) (Auto) 0.1 % Neutrophils # (Auto) 10.47 K/uL (1.4-6.5) Lymphocytes # (Auto) 1.13 K/uL (1.2-3.4) Monocytes # (Auto) 1.69 K/uL (0.11-0.59) Eosinophils # (Auto) 0.01 K/uL (0-0.5) Basophils # (Auto) 0.01 K/uL (0-0.2) RDW Standard Deviation 52.5 fL (36.4-46.3) RDW Coefficient of Variation 15.9 % (11.5-14.5) Immature Granulocyte % (Auto) 0.2 % Immature Granulocyte # (Auto) 0.03 K/uL (0.00-0.02) Red Blood Cell Morphology Unremarkable Prothrombin Time 12.0 SECONDS (9.0-12.0) Prothromb Time International Ratio 1.1 (0.9-1.1) Sodium Level 144 mmol/L (136-145) Potassium Level 3.9 mmol/L (3.5-5.1) Chloride Level 108 mmol/L (98-107) Carbon Dioxide Level 28 mmol/L (21-32) Anion Gap 8.0 mmol/L (3-11) Blood Urea Nitrogen 16 mg/dl (7-18) Creatinine 0.84 mg/dl (0.60-1.20) Est Creatinine Clear Calc Drug Dose 49.9 ml/min Estimated GFR () 71.9 Estimated GFR (Non- 62.1 BUN/Creatinine Ratio 18.9 (10-20) Random Glucose 103 mg/dl (70-99) Calcium Level 7.9 mg/dl (8.5-10.1) Micro Results: Item Value Date Time MRSA DNA Surveillance Screen - Final Complete 05/06/17 1835 Nasal Specimen Negative for MRSA by DNA Probe MRSA DNA Surveillance Screen - Final Complete 05/05/17 1950 Nasal Specimen Negative for MRSA by DNA Probe Urine Culture - Preliminary Resulted 05/05/17 1550 Urine,Catheterized Gram Positive Cocci Assessment & Plan VANCOMYCIN: * Loading dose: Vancomycin 2000 mg IV X 1 dose then: * Vancomycin 1300 mg IV every 24 hours. * Patient's estimated p'kinetic parameters (based on CrCl 42mL/min): * Vd ~ 0.7L/kg Ke ~ 0.039/hr t1/2 ~ 17.8hr * Goal trough level estimate: ~ 15 mcg/mL for UTI and unknown C/S * Tough level has been ordered for: 05/10/17 prior to the 3rd maintenance dose (which will likely not yet be steady-state). Patient is also receiving Rocephin 1gm IV daily. Pharmacy will continue to follow and will adjust dose/frequency as necessary. Thank you
[2017-05-08] MEDS: NYSTATIN CR 15 GM TUBE EXT SCH ×2 (08:14→20:45)
[2017-05-08] MEDS: POLYETHYLENE (MIRALAX) 17 GM PACK PO SCH (08:14)
[2017-05-08] MEDS: METOPROLOL TARTRATE 25 MG TAB PO SCH (08:15)
[2017-05-08] MEDS: ROSUVASTATIN CALCIUM 5 MG TAB PO SCH (08:15)
[2017-05-08] MEDS: PANTOprazole SOD 40 MG TAB PO SCH (08:17)
--- NOTE | 2017-05-08 08:29 | Pharmacy Progress Note ---
Pharmacy Abx Dose Short Note Date of Service May 08, 2017. Assessment & Plan Assessment 86 year old female receiving vancomycin and Rocephin for treatment of UTI Day # 2 of antimicrobial therapy. SCr improved from 1 -> 0.8, necessitating a change to vancomycin regimen to prevent a subtherapeutic trough level Item Value Date Time Urine Culture - Preliminary Resulted 05/05/17 1550 Urine,Catheterized Gram Positive Cocci Plan Adjust dose with improvement in SCr Continue to follow once sensitivities resulted to de-escalate therapy if necessary Vancomycin * Change to 1300 mg IV every 20 hours * Goal trough level for UTI : ~15 mcg/mL * Trough level ordered for: 05/10/17 prior to the 4th overall dose Pharmacy will continue to follow and will adjust dose/frequency as necessary. Thank you.
[2017-05-08] MEDS ORDERED: VANCOMYCIN INJ 1,300 MG in SODIUM CHLORIDE 0.9% 250ML 250 ML IV SCH ×2 (12:00→14:00)
--- NOTE | 2017-05-08 12:02 | DIAGNOSTIC IMAGING REPORT ---
CHEST ONE VIEW PORTABLE CLINICAL HISTORY: hip fx, CHF dyspnea COMPARISON STUDY: 05/07/2017 FINDINGS: persistent increased prominence of the pulmonary vasculature. Chronic elevation right hemidiaphragm. No well-defined focal infiltrative change. IMPRESSION: Findings of mild congestive failure is stable to minimally increased in prominence compared to the prior study. Electronically signed by: Iam De Leon M.D. 05/08/2017 12:00 PM Dictated Date/Time: 05/08/2017 11:59 AM
[2017-05-08] MEDS: D5W AND NSS 1,000 ML IV SCH (13:40)
--- NOTE | 2017-05-08 14:27 | Progress Note ---
Medicine Progress Note Date & Time of Visit: May 08, 2017 at 14:27. Subjective Received a unit of packed RBCs last night. No fever. Denies chest pain. No cough or shortness of breath. No nausea or vomiting. No recorded bowel movement since admission. Still has Villarreal catheter. Denies pain. . Objective Last 8 Hrs Date Time Temp Pulse Resp B/P (MAP) Pulse Ox O2 Delivery O2 Flow Rate FiO2 05/08/17 12:00 94 Nasal Cannula 2.0 05/08/17 11:30 36.6 79 20 134/77 (96) 96 Nasal Cannula 3.0 05/08/17 08:00 92 Nasal Cannula 2.0 05/08/17 07:47 37.0 91 16 127/73 (91) 96 Nasal Cannula 3.0 Physical Exam: General- lying in bed, no distress Neck- slight JVD Lungs- clear to auscultation Heart- regular, III/ systolic murmur at base, no gallop appreciated Abdomen- normal bowel sounds, soft, nontender Extremities- right lower extremity with immobilizer applied; no pretibial edema or calf tenderness left lower extremity Neuro- alert, confused, oriented to person only . Laboratory Results: Last 24 Hours Test 05/07/17 16:12 05/07/17 16:40 05/07/17 20:16 05/07/17 22:12 Hemoglobin 8.1 g/dL 7.3 g/dL Hematocrit 26.1 % 24.5 % Bedside Glucose 131 mg/dl 106 mg/dl Test 05/08/17 06:10 05/08/17 06:33 05/08/17 11:19 White Blood Count 13.34 K/uL Red Blood Count 3.04 M/uL Hemoglobin 8.3 g/dL Hematocrit 27.4 % Mean Corpuscular Volume 90.1 fL Mean Corpuscular Hemoglobin 27.3 pg Mean Corpuscular Hemoglobin Concent 30.3 g/dl Platelet Count 189 K/uL Mean Platelet Volume 9.3 fL Neutrophils (%) (Auto) 78.4 % Lymphocytes (%) (Auto) 8.5 % Monocytes (%) (Auto) 12.7 % Eosinophils (%) (Auto) 0.1 % Basophils (%) (Auto) 0.1 % Neutrophils # (Auto) 10.47 K/uL Lymphocytes # (Auto) 1.13 K/uL Monocytes # (Auto) 1.69 K/uL Eosinophils # (Auto) 0.01 K/uL Basophils # (Auto) 0.01 K/uL RDW Standard Deviation 52.5 fL RDW Coefficient of Variation 15.9 % Immature Granulocyte % (Auto) 0.2 % Immature Granulocyte # (Auto) 0.03 K/uL Red Blood Cell Morphology Unremarkable Prothrombin Time 12.0 SECONDS Prothromb Time International Ratio 1.1 Sodium Level 144 mmol/L Potassium Level 3.9 mmol/L Chloride Level 108 mmol/L Carbon Dioxide Level 28 mmol/L Anion Gap 8.0 mmol/L Blood Urea Nitrogen 16 mg/dl Creatinine 0.84 mg/dl Est Creatinine Clear Calc Drug Dose 49.9 ml/min Estimated GFR () 71.9 Estimated GFR (Non- 62.1 BUN/Creatinine Ratio 18.9 Random Glucose 103 mg/dl Calcium Level 7.9 mg/dl Bedside Glucose 115 mg/dl 116 mg/dl Assessment & Plan RIGHT PERIPROSTHETIC FEMUR FRACTURE ORIF performed by Dr. Muñoz on 05/06/17. NWB RLE with Immobilizer PT/OT as tolerated. POSTOPERATIVE RESPIRATORY DISTRESS Developed respiratory distress and transient hypoxia in PACU, attributed to laryngospasm and / or possible pseudocholinesterase deficiency. Re-intubated in PACU and transferred to ICU. Extubated on 05/07/17. CHF Chest x-rays postoperatively demonstrated congestive heart failure. Echocardiogram in 2014 demonstrated mild left ventricular hypertrophy, normal left ventricular wall motion and function. Probable acute diastolic CHF/volume overload. Diurese as necessary. ANEMIA Hemoglobin 11.3 on admission and fell as low as 7.3. Acute blood loss anemia secondary to femur fracture. Received 1 unit of packed RBCs. Hemoglobin today = 8.3. BACTERURIA Admission UA showed small amount of leukocyte esterase, negative nitrite, 15 WBCs, 4+ bacteria, many epithelial cells. Urine culture growing > 100,000 gram-positive cocci. Uncertain whether or not bacteruria is symptomatic. No fever. White count as high as 14,000, but could be secondary to femur fracture. Has received 2 doses of IV vancomycin and 1 dose of ceftriaxone. Does not appear to be septic. Nasal MRSA screen negative x 2. Will stop antibiotics pending final ID and sensitivity from urine culture. VILLARREAL CATH Discontinue as soon as possible. PAROXYSMAL ATRIAL FIBRILLATION On chronic warfarin therapy for history of pulmonary embolism and atrial fibrillation. Warfarin reversed for surgery and has been restarted. HISTORY OF PULMONARY EMBOLISM On chronic warfarin therapy for history of pulmonary embolism and atrial fibrillation. Warfarin reversed for surgery and has been restarted. CKD III Serum creatinine today = 0.84. PMR Received IV hydrocortisone perioperatively. Continue redness on. DEMENTIA History of dementia. Monitor for delirium. VTE PROPHYLAXIS On chronic warfarin therapy for history of pulmonary embolism and atrial fibrillation. Warfarin reversed for surgery and has been restarted. SQ unfractionated heparin until INR therapeutic. RESUSCITATION STATUS DNR DISPOSITION Expected return to [facility] under the care of Dr. Fuller. . Current Inpatient Medications: Current Inpatient Medications Medications (Trade) Dose Ordered Sig/Nemesio Route Start Time Stop Time Status Last Admin Dose Admin Acetaminophen (Tylenol Tab) 650 mg Q4H PRN PO 05/05/17 16:15 06/04/17 16:14 05/05/17 17:31 650 MG Dextrose/Sodium Chloride 1,000 ml @ 60 mls/hr [id number] IV 05/05/17 18:45 06/04/17 18:44 05/08/17 13:40 60 MLS/HR Tramadol HCl (Ultram Tab) 50 mg Q6H PRN PO 05/05/17 18:45 06/04/17 18:44 05/08/17 05:32 50 MG Escitalopram Oxalate (Lexapro Tab) 5 mg HS PO 05/05/17 21:00 06/04/17 20:59 05/07/17 20:30 5 MG Metoprolol Tartrate (Lopressor Tab) 25 mg DAILY PO 05/06/17 09:00 06/05/17 08:59 05/08/17 08:15 25 MG Nystatin (Mycostatin Crm) 1 appln BID EXT 05/05/17 21:00 06/04/17 20:59 05/08/17 08:14 1 APPLN Rosuvastatin Calcium (Crestor Tab) 5 mg DAILY PO 05/06/17 09:00 06/05/17 08:59 05/08/17 08:15 5 MG Polyethylene (Miralax Powder Packet) 17 gm DAILY PO 05/06/17 09:00 06/05/17 08:59 05/08/17 08:14 17 GM Prednisone (PredniSONE TAB) 3 mg DAILY PO 05/08/17 09:00 06/07/17 08:59 05/08/17 08:15 3 MG Warfarin Sodium (Coumadin Tab) 2.5 mg SuMoTuWeThFr@1600 PO 05/06/17 18:00 06/05/17 17:59 05/07/17 15:42 2.5 MG Warfarin Sodium (Coumadin Tab) 5 mg Sa@1600 PO 05/12/17 16:00 06/11/17 15:59 Insulin Aspart (novoLOG ASPART) SLIDING SCALE G... ACHS SC 05/07/17 06:45 06/06/17 06:44 Pantoprazole Sodium (Protonix Tab) 40 mg QAM PO 05/07/17 09:00 06/06/17 08:59 05/08/17 08:17 40 MG Acetaminophen 100 ml @ 400 mls/hr Q8H IV 05/07/17 12:00 05/09/17 11:59 05/08/17 13:38 400 MLS/HR Hydromorphone HCl (Dilaudid Inj) 0.3 mg Q6H PRN IV 05/07/17 15:15 05/21/17 09:14 05/07/17 18:02 0.3 MG Ceftriaxone Sodium 1 gm/ Dextrose 50 ml @ 100 mls/hr Q24H IV 05/07/17 14:00 05/17/17 13:59 05/07/17 14:18 100 MLS/HR Vancomycin HCl (Consult) 1 ea UD PRN N/A 05/07/17 14:00 06/06/17 13:59 Vancomycin HCl 1300 mg/Sodium Chloride 276 ml @ 125 mls/hr Q20H IV 05/08/17 12:00 05/17/17 11:59 05/08/17 13:37 125 MLS/HR
[2017-05-08] MEDS ORDERED: FUROSEMIDE INJ 40 MG in SYRINGE 0 ML IV ONE (16:00)
[2017-05-08] MEDS ORDERED: POTASSIUM CHLORIDE 20 MEQ TABCR PO ONE (16:00)
[2017-05-08] MEDS: WARFARIN SOD 5 MG TAB PO SCH (16:05)
--- NOTE | 2017-05-08 16:17 | Orthopedic Progress Note ---
Orthopedic Progress Note Date of Service May 08, 2017. Subjective Post OP Day: 2 Reports: feeling well, pain controlled w PO medications Additional Notes: Sitting up in bed. Nursing states she was confused a bit yesterday but she seems to be getting better today. Much more conversant that yesterday. Pt answering most questions appropriately. States that her RLE pain is controlled at rest. Objective calves soft nontender, N/V intact, incision C/D/I, toes mobile Date Time Temp Pulse Resp B/P (MAP) Pulse Ox O2 Delivery O2 Flow Rate FiO2 05/08/17 15:24 36.8 77 20 134/78 (96) 99 Nasal Cannula 3.0 05/08/17 12:00 94 Nasal Cannula 2.0 05/08/17 11:30 36.6 79 20 134/77 (96) 96 Nasal Cannula 3.0 05/08/17 08:00 92 Nasal Cannula 2.0 05/08/17 07:47 37.0 91 16 127/73 (91) 96 Nasal Cannula 3.0 05/08/17 04:00 92 Nasal Cannula 2.0 05/08/17 03:13 36.6 101 22 126/75 91 3.0 05/08/17 02:30 36.3 102 20 137/74 93 3.0 05/08/17 01:50 36.4 101 22 125/72 94 3.0 05/08/17 01:20 36.6 99 22 114/68 92 3.0 05/08/17 01:00 36.5 101 20 106/66 94 3.0 05/08/17 00:43 36.8 80 16 101/63 93 2.0 05/08/17 00:05 36.7 104 22 103/64 (77) 91 Nasal Cannula 3.0 05/08/17 00:00 93 Nasal Cannula 05/07/17 20:05 36.9 98 24 98/52 (67) 93 Nasal Cannula 3.0 05/07/17 20:00 93 Nasal Cannula Laboratory Results 24 Hours: Test 05/07/17 16:12 05/07/17 22:12 05/08/17 06:10 Hematocrit 26.1 % 24.5 % 27.4 % Hemoglobin 8.1 g/dL 7.3 g/dL 8.3 g/dL White Blood Count 13.34 K/uL Red Blood Count 3.04 M/uL Mean Corpuscular Volume 90.1 fL Mean Corpuscular Hemoglobin 27.3 pg Mean Corpuscular Hemoglobin Concent 30.3 g/dl Platelet Count 189 K/uL Mean Platelet Volume 9.3 fL Neutrophils (%) (Auto) 78.4 % Lymphocytes (%) (Auto) 8.5 % Monocytes (%) (Auto) 12.7 % Eosinophils (%) (Auto) 0.1 % Basophils (%) (Auto) 0.1 % Neutrophils # (Auto) 10.47 K/uL Lymphocytes # (Auto) 1.13 K/uL Monocytes # (Auto) 1.69 K/uL Eosinophils # (Auto) 0.01 K/uL Basophils # (Auto) 0.01 K/uL Prothromb Time International Ratio 1.1 Prothrombin Time 12.0 SECONDS Assessment & Plan Assessment: POD 2 ORIF Right Periprosthetic femur fracture s/p right tka Plan: NWB RLE with Immobilizer PT/OT As per Medicine Service Inhouse Planning Pain Management: Ultram, Dilaudid, PO Tylenol DVT Prophylaxis: TEDs, SCDs, Coumadin Discharge Planning Discharge Planning: custodial facility
[2017-05-08] MEDS: HYDROmorphone INJ 1 MG/ML SYR IV PRN (16:55)
[2017-05-08] MEDS: POTASSIUM CHLORIDE 20 MEQ TABCR PO SCH (20:44)
[2017-05-08] MEDS: ESCITALOPRAM OXALATE 10 MG TAB PO SCH (20:45)
[2017-05-09] VITALS (10 sets, daily range): BP systolic 121–150; BP diastolic 76–86; PULSE 80–100; TEMP 36.7–36.8; O2SAT 92–98
[2017-05-09] MEDS: HYDROmorphone INJ 1 MG/ML SYR IV PRN ×2 (01:57→08:00)
[2017-05-09] MEDS: TRAMADOL HCL 50 MG TAB PO PRN (06:02)
[2017-05-09 06:08] LABS: BASO % 0.4 %; BASO ABS # 0.04 K/uL (0-0.2); EOS % 1.9 %; HEMATOCRIT 30.1 % (37-47); IG% 0.3 %; LYMPH % 19.8 %; LYMPH ABS # 2.09 K/uL (1.2-3.4); MEAN CORPUSCULAR HEMOGLOBIN 27.2 pg (25-34); MEAN CORPUSCULAR HGB CONC 29.6 g/dl (32-36); MEAN PLATELET VOLUME 9.3 fL (7.4-10.4); MONO % 14.4 %; NEUT % 63.2 %; PLATELET COUNT 216 K/uL (130-400); RED BLOOD COUNT 3.27 M/uL (4.2-5.4); WHITE BLOOD COUNT 10.56 K/uL (4.8-10.8)
[2017-05-09 06:14] LABS: INR 1.2 (0.9-1.1)
[2017-05-09 06:45] LABS: BUN/CREATININE RATIO 17.7 (10-20); CALCIUM 8.5 mg/dl (8.5-10.1); CREATININE 0.88 mg/dl (0.60-1.20); POTASSIUM 3.8 mmol/L (3.5-5.1)
[2017-05-09 06:54] LABS: COMPLETE YES
--- NOTE | 2017-05-09 07:39 | Consultant Recommendations ---
Swing Ride Operator Recommendations Date of Service May 09, 2017. Swing Ride Operator Recommendations Pt must remain Non weightbearing with Immobilizer on at all times. Walker for ambulation if pt able to. Otherwise, plan for bed to chair transfers Immobilizer may be removed for bathing and dressing changes. Daily dressing changes. If wound is dry, may change dressing every other day. Keep wound covered while using Immobilizer. Pt may shower if having minimal to no drainage. No direct shower pressure to wound. Do not soak the wound. No tub baths. No Range of Motion of the knee until seen in the office by Dr Muñoz. F/U with Dr Muñoz in 2 weeks from the day of surgery. Call for appt. [phone]
--- NOTE | 2017-05-09 07:43 | DIAGNOSTIC IMAGING REPORT ---
CHEST ONE VIEW PORTABLE HISTORY: Short of breath. Congestive heart failure. COMPARISON: Chest 05/08/2017. FINDINGS: Chronic elevation of the right hemidiaphragm, unchanged. The heart remains mildly enlarged. Suspect trace bilateral pleural effusions. No pneumothorax. Perihilar interstitial and vascular thickening consistent with mild congestive change. This is similar to the prior study. IMPRESSION: No change in the mild congestive change and chronic elevation of the right hemidiaphragm. Electronically signed by: Fabrice Oliver M.D. 05/09/2017 7:42 AM Dictated Date/Time: 05/09/2017 7:41 AM
[2017-05-09] MEDS: ROSUVASTATIN CALCIUM 5 MG TAB PO SCH (08:01)
[2017-05-09] MEDS: POLYETHYLENE (MIRALAX) 17 GM PACK PO SCH (08:01)
[2017-05-09] MEDS: NYSTATIN CR 15 GM TUBE EXT SCH ×2 (08:01→20:46)
[2017-05-09] MEDS: PANTOprazole SOD 40 MG TAB PO SCH (08:02)
[2017-05-09] MEDS: POTASSIUM CHLORIDE 20 MEQ TABCR PO SCH ×2 (08:02→20:45)
[2017-05-09] MEDS: METOPROLOL TARTRATE 25 MG TAB PO SCH (08:03)
[2017-05-09] MEDS: HEPARIN SOD 5000 UNIT/0.5 ML CARP SQ SCH ×2 (08:05→20:44)
[2017-05-09] MEDS ORDERED: FUROSEMIDE INJ 40 MG in SYRINGE 0 ML IV ONE (12:00)
--- NOTE | 2017-05-09 13:48 | Orthopedic Progress Note ---
Orthopedic Progress Note Date of Service May 09, 2017. Subjective Post OP Day: 3 Reports: feeling well, pain controlled w PO medications, Denies: complaints, chest pain, SOB, nausea / vomiting, light headedness, calf pain Additional Notes: Patient states right leg comfortable. Objective calves soft nontender, N/V intact, capillary refill less than 2 sec., incision C /D/I, toes mobile Date Time Temp Pulse Resp B/P (MAP) Pulse Ox O2 Delivery O2 Flow Rate FiO2 05/09/17 12:00 98 Nasal Cannula 3.0 05/09/17 11:42 36.7 81 16 137/82 (100) 97 Nasal Cannula 3.0 05/09/17 08:00 96 Nasal Cannula 3.0 05/09/17 07:34 36.7 96 16 150/81 (104) 97 Nasal Cannula 3.0 05/09/17 04:00 98 Nasal Cannula 3.0 05/09/17 03:37 36.7 100 20 143/86 (105) 98 Nasal Cannula 3.0 05/08/17 23:59 98 Nasal Cannula 3.0 05/08/17 23:31 37.0 89 19 122/74 (90) 98 Nasal Cannula 3.0 05/08/17 20:07 36.7 92 18 100/64 (76) 92 Room Air 05/08/17 20:00 92 Nasal Cannula 2.0 05/08/17 16:00 99 Nasal Cannula 2.0 05/08/17 15:24 36.8 77 20 134/78 (96) 99 Nasal Cannula 3.0 Laboratory Results 24 Hours: Test 05/09/17 05:47 White Blood Count 10.56 K/uL Red Blood Count 3.27 M/uL Hemoglobin 8.9 g/dL Hematocrit 30.1 % Mean Corpuscular Volume 92.0 fL Mean Corpuscular Hemoglobin 27.2 pg Mean Corpuscular Hemoglobin Concent 29.6 g/dl Platelet Count 216 K/uL Mean Platelet Volume 9.3 fL Neutrophils (%) (Auto) 63.2 % Lymphocytes (%) (Auto) 19.8 % Monocytes (%) (Auto) 14.4 % Eosinophils (%) (Auto) 1.9 % Basophils (%) (Auto) 0.4 % Neutrophils # (Auto) 6.68 K/uL Lymphocytes # (Auto) 2.09 K/uL Monocytes # (Auto) 1.52 K/uL Eosinophils # (Auto) 0.20 K/uL Basophils # (Auto) 0.04 K/uL Prothromb Time International Ratio 1.2 Prothrombin Time 13.0 SECONDS Assessment & Plan Assessment: POD 3 ORIF Right Periprosthetic femur fracture s/p right tka Plan: NWB RLE with Immobilizer PT/OT As per Medicine Service Inhouse Planning Pain Management: Ultram, Dilaudid, PO Tylenol DVT Prophylaxis: TEDs, SCDs, Coumadin Discharge Planning [facility]charge Planning[facility] facility
[2017-05-09] MEDS: WARFARIN SOD 5 MG TAB PO SCH (15:50)
[2017-05-09] MEDS: ACETAMINOPHEN 325 MG TAB PO PRN ×2 (15:55→20:47)
[2017-05-09] MEDS ORDERED: MAGNESIUM HYDROXIDE SUSP 30 ML UDC PO PRN (17:30)
[2017-05-09] MEDS ORDERED: TRAMADOL HCL 50 MG TAB PO PRN (17:30)
[2017-05-09] MEDS ORDERED: SOD PHOSPHATE/SOD BIPHOSPHATE ENEMA 132 ML BTL PR PRN (17:30)
[2017-05-09] MEDS ORDERED: BISACODYL 5 MG TABEC PO PRN (17:30)
--- NOTE | 2017-05-09 19:40 | Progress Note ---
Medicine Progress Note Date & Time of Visit: May 09, 2017 at 16:27 . Subjective Confused. No fever. No cough or SOB. No chest pain. No nausea or vomiting. No BM for several days. Still has Villarreal catheter. Has some pain RLE. . Objective Last 8 Hrs Date Time Temp Pulse Resp B/P (MAP) Pulse Ox O2 Delivery O2 Flow Rate FiO2 05/09/17 16:11 92 Nasal Cannula 2.0 05/09/17 15:34 36.8 82 16 133/85 (101) 92 Nasal Cannula 3.0 05/09/17 12:00 98 Nasal Cannula 3.0 05/09/17 11:42 36.7 81 16 137/82 (100) 97 Nasal Cannula 3.0 Physical Exam: General- lying in bed, no distress Neck- slight JVD Lungs- clear to auscultation Heart- regular, III/ systolic murmur at base, no gallop appreciated Abdomen- normal bowel sounds, soft, nontender Extremities- right lower extremity with immobilizer applied; no pretibial edema or calf tenderness left lower extremity Neuro- alert, confused, oriented to person only . Laboratory Results: Last 24 Hours Test 05/09/17 05:47 White Blood Count 10.56 K/uL Red Blood Count 3.27 M/uL Hemoglobin 8.9 g/dL Hematocrit 30.1 % Mean Corpuscular Volume 92.0 fL Mean Corpuscular Hemoglobin 27.2 pg Mean Corpuscular Hemoglobin Concent 29.6 g/dl Platelet Count 216 K/uL Mean Platelet Volume 9.3 fL Neutrophils (%) (Auto) 63.2 % Lymphocytes (%) (Auto) 19.8 % Monocytes (%) (Auto) 14.4 % Eosinophils (%) (Auto) 1.9 % Basophils (%) (Auto) 0.4 % Neutrophils # (Auto) 6.68 K/uL Lymphocytes # (Auto) 2.09 K/uL Monocytes # (Auto) 1.52 K/uL Eosinophils # (Auto) 0.20 K/uL Basophils # (Auto) 0.04 K/uL RDW Standard Deviation 54.7 fL RDW Coefficient of Variation 16.1 % Immature Granulocyte % (Auto) 0.3 % Immature Granulocyte # (Auto) 0.03 K/uL Red Blood Cell Morphology Unremarkable Prothrombin Time 13.0 SECONDS Prothromb Time International Ratio 1.2 Sodium Level 144 mmol/L Potassium Level 3.8 mmol/L Chloride Level 104 mmol/L Carbon Dioxide Level 35 mmol/L Anion Gap 5.0 mmol/L Blood Urea Nitrogen 16 mg/dl Creatinine 0.88 mg/dl Est Creatinine Clear Calc Drug Dose 47.1 ml/min Estimated GFR () 68.0 Estimated GFR (Non- 58.7 BUN/Creatinine Ratio 17.7 Random Glucose 77 mg/dl Calcium Level 8.5 mg/dl Assessment & Plan RIGHT PERIPROSTHETIC FEMUR FRACTURE ORIF performed by Dr. Muñoz on 05/06/17. NWB RLE with Immobilizer PT/OT as tolerated. POSTOPERATIVE RESPIRATORY DISTRESS Developed respiratory distress and transient hypoxia in PACU, attributed to laryngospasm and / or possible pseudocholinesterase deficiency. Re-intubated in PACU and transferred to ICU. Extubated on 05/07/17. CHF Chest x-rays postoperatively demonstrated congestive heart failure. Echocardiogram in 2014 demonstrated mild left ventricular hypertrophy, normal left ventricular wall motion and function. Probable acute diastolic CHF/volume overload. Chest x-ray today shows persistent vascular congestion. IV furosemide again today, then diurese as necessary. ANEMIA Hemoglobin 11.3 on admission and fell as low as 7.3. Acute blood loss anemia secondary to femur fracture. Received 1 unit of packed RBCs. Hemoglobin today = 8.9. BACTERURIA Admission UA showed small amount of leukocyte esterase, negative nitrite, 15 WBCs, 4+ bacteria, many epithelial cells. Urine culture growing > 100,000 gram-positive cocci. Uncertain whether or not bacteruria is symptomatic. No fever. White count as high as 14,000, but could be secondary to femur fracture. Received 2 doses of IV vancomycin and 1 dose of ceftriaxone. Did not appear to be septic. Nasal MRSA screen negative x 2. Stopped antibiotics pending final ID and sensitivity from urine culture. Urine culture growing > 100,000 alpha strep. Resume ceftriaxone. VILLARREAL CATH Discontinue as soon as possible. PAROXYSMAL ATRIAL FIBRILLATION On chronic warfarin therapy for history of pulmonary embolism and atrial fibrillation. Warfarin reversed for surgery and has been restarted. HISTORY OF PULMONARY EMBOLISM On chronic warfarin therapy for history of pulmonary embolism and atrial fibrillation. Warfarin reversed for surgery and has been restarted. CKD III Serum creatinine today = 0.88. PMR Received IV hydrocortisone perioperatively. Continue prednisone. DEMENTIA History of dementia. Monitor for delirium. VTE PROPHYLAXIS On chronic warfarin therapy for history of pulmonary embolism and atrial fibrillation. Warfarin reversed for surgery and has been restarted. SQ unfractionated heparin until INR therapeutic. RESUSCITATION STATUS DNR DISPOSITION [facility] of Dr[facility] Fuller. . Current Inpatient Medications: Current Inpatient Medications Medications (Trade) Dose Ordered Sig/Nemesio Route Start Time Stop Time Status Last Admin Dose Admin Acetaminophen (Tylenol Tab) 650 mg Q4H PRN PO 05/05/17 16:15 06/04/17 16:14 05/09/17 15:55 650 MG Tramadol HCl (Ultram Tab) 50 mg Q6H PRN PO 05/05/17 18:45 06/04/17 18:44 05/09/17 06:02 50 MG Escitalopram Oxalate (Lexapro Tab) 5 mg HS PO 05/05/17 21:00 06/04/17 20:59 05/08/17 20:45 5 MG Metoprolol Tartrate (Lopressor Tab) 25 mg DAILY PO 05/06/17 09:00 06/05/17 08:59 05/09/17 08:03 25 MG Nystatin (Mycostatin Crm) 1 appln BID EXT 05/05/17 21:00 06/04/17 20:59 05/09/17 08:01 1 APPLN Rosuvastatin Calcium (Crestor Tab) 5 mg DAILY PO 05/06/17 09:00 06/05/17 08:59 05/09/17 08:01 5 MG Polyethylene (Miralax Powder Packet) 17 gm DAILY PO 05/06/17 09:00 06/05/17 08:59 05/09/17 08:01 17 GM Prednisone (PredniSONE TAB) 3 mg DAILY PO 05/08/17 09:00 06/07/17 08:59 05/09/17 08:02 3 MG Pantoprazole Sodium (Protonix Tab) 40 mg QAM PO 05/07/17 09:00 06/06/17 08:59 05/09/17 08:02 40 MG Hydromorphone HCl (Dilaudid Inj) 0.3 mg Q6H PRN IV 05/07/17 15:15 05/21/17 09:14 05/09/17 08:00 0.3 MG Potassium Chloride (Klor-Con Tab) 20 meq BID PO 05/08/17 21:00 06/07/17 20:59 05/09/17 08:02 20 MEQ Warfarin Sodium (Coumadin Tab) 5 mg DAILY@16 PO 05/08/17 16:00 06/07/17 15:59 05/09/17 15:50 5 MG Heparin Sodium (Porcine) (Heparin Sq 5000 Unit/0.5ml) 5,000 unit Q12 SQ 05/09/17 09:00 06/08/17 08:59 05/09/17 08:05 5,000 UNIT
[2017-05-09] MEDS: ESCITALOPRAM OXALATE 10 MG TAB PO SCH (20:45)
[2017-05-09 20:53] LABS: DIBUCAINE NUMBER 85.9 % Inhibit (81.6-88.3)
[2017-05-09] MEDS ORDERED: KETOROLAC TROMETHAMINE 15 MG/ML VIAL IV. STA (22:41)
[2017-05-10] VITALS (8 sets, daily range): BP systolic 122–166; BP diastolic 67–83; PULSE 70–90; TEMP 36.4–36.9; O2SAT 82–99
[2017-05-10] MEDS ORDERED: VANCOMYCIN TROUGH ONE (03:30)
[2017-05-10 06:03] LABS: BASO % 0.3 %; BASO ABS # 0.03 K/uL (0-0.2); COMPLETE YES; EOS % 3.2 %; HEMATOCRIT 31.1 % (37-47); IG% 0.2 %; MEAN CELL VOLUME 93.1 fL (80-100); MEAN CORPUSCULAR HEMOGLOBIN 27.8 pg (25-34); MEAN CORPUSCULAR HGB CONC 29.9 g/dl (32-36); MEAN PLATELET VOLUME 9.2 fL (7.4-10.4); MONO % 14.2 %; NEUT % 60.1 %; PLATELET COUNT 228 K/uL (130-400); RED BLOOD COUNT 3.34 M/uL (4.2-5.4); WHITE BLOOD COUNT 9.11 K/uL (4.8-10.8)
[2017-05-10 06:15] LABS: INR 1.5 (0.9-1.1); PROTHROMBIN TIME (PATIENT) 16.7 SECONDS (9.0-12.0)
[2017-05-10 06:47] LABS: BUN/CREATININE RATIO 25.2 (10-20); CALCIUM 8.5 mg/dl (8.5-10.1); CREATININE 0.96 mg/dl (0.60-1.20); POTASSIUM 4.3 mmol/L (3.5-5.1)
--- NOTE | 2017-05-10 06:47 | DIAGNOSTIC IMAGING REPORT ---
ULTRASOUND RIGHT VENOUS DOPP LOWER EXT UNILAT CLINICAL HISTORY: Right leg swelling COMPARISON STUDY: 05/19/2012 FINDINGS: Real-time and color flow Doppler imaging were performed. Flow was seen within the femoral, popliteal and calf veins with no intraluminal thrombus demonstrated. The saphenous vein is patent. IMPRESSION: No evidence of right lower extremity DVT. Electronically signed by: Flaco Rodriguez M.D. 05/10/2017 6:46 AM Dictated Date/Time: 05/10/2017 6:45 AM
[2017-05-10] MEDS: NYSTATIN CR 15 GM TUBE EXT SCH ×2 (07:36→20:56)
[2017-05-10] MEDS: ROSUVASTATIN CALCIUM 5 MG TAB PO SCH (07:36)
[2017-05-10] MEDS: PANTOprazole SOD 40 MG TAB PO SCH (07:37)
[2017-05-10] MEDS: METOPROLOL TARTRATE 25 MG TAB PO SCH (07:37)
[2017-05-10] MEDS: POLYETHYLENE (MIRALAX) 17 GM PACK PO SCH (07:37)
[2017-05-10] MEDS: POTASSIUM CHLORIDE 20 MEQ TABCR PO SCH ×2 (07:37→20:55)
[2017-05-10] MEDS: HEPARIN SOD 5000 UNIT/0.5 ML CARP SQ SCH ×2 (07:38→21:00)
--- NOTE | 2017-05-10 08:47 | Orthopedic Progress Note ---
Orthopedic Progress Note Date of Service May 10, 2017. Subjective Post OP Day: 4 Reports: feeling well, pain controlled w PO medications, Denies: complaints, chest pain, SOB, nausea / vomiting, light headedness Objective calves soft nontender, capillary refill less than 2 sec., incision C/D/I, toes mobile Date Time Temp Pulse Resp B/P (MAP) Pulse Ox O2 Delivery O2 Flow Rate FiO2 05/10/17 08:00 Nasal Cannula 2.0 05/10/17 07:38 36.4 90 18 166/83 (110) 99 Nasal Cannula 2.0 05/10/17 04:12 36.7 82 16 156/74 (101) 98 2.0 05/10/17 04:00 Nasal Cannula 2.0 05/10/17 00:13 36.6 82 18 122/72 (89) 98 05/09/17 23:16 Nasal Cannula 2.0 05/09/17 20:00 98 Nasal Cannula 2.0 05/09/17 19:53 36.8 80 20 121/76 (91) 98 Nasal Cannula 3.0 05/09/17 16:11 92 Nasal Cannula 2.0 05/09/17 15:34 36.8 82 16 133/85 (101) 92 Nasal Cannula 3.0 05/09/17 12:00 98 Nasal Cannula 3.0 05/09/17 11:42 36.7 81 16 137/82 (100) 97 Nasal Cannula 3.0 Laboratory Results 24 Hours: Test 05/10/17 05:36 White Blood Count 9.11 K/uL Red Blood Count 3.34 M/uL Hemoglobin 9.3 g/dL Hematocrit 31.1 % Mean Corpuscular Volume 93.1 fL Mean Corpuscular Hemoglobin 27.8 pg Mean Corpuscular Hemoglobin Concent 29.9 g/dl Platelet Count 228 K/uL Mean Platelet Volume 9.2 fL Neutrophils (%) (Auto) 60.1 % Lymphocytes (%) (Auto) 22.0 % Monocytes (%) (Auto) 14.2 % Eosinophils (%) (Auto) 3.2 % Basophils (%) (Auto) 0.3 % Neutrophils # (Auto) 5.48 K/uL Lymphocytes # (Auto) 2.00 K/uL Monocytes # (Auto) 1.29 K/uL Eosinophils # (Auto) 0.29 K/uL Basophils # (Auto) 0.03 K/uL Prothromb Time International Ratio 1.5 Prothrombin Time 16.7 SECONDS Assessment & Plan Assessment: POD 4 ORIF Right Periprosthetic femur fracture s/p right tka Plan: NWB RLE with Immobilizer PT/OT As per Medicine Service DVT proh- coumadin Ortho will sign off, please reconsult as needed. Inhouse Planning Pain Management: Ultram, Dilaudid, PO Tylenol DVT Prophylaxis: TEDs, SCDs, Coumadin Discharge Planning [facility]charge Planning[facility]
--- NOTE | 2017-05-10 14:52 | Progress Note ---
Medicine Progress Note Date & Time of Visit: May 10, 2017 at 14:52 . Subjective More alert. Still confused. No fever. No cough or shortness of breath. No chest pain. Nursing reports that appetite is only fair. No nausea or vomiting. Moved bowels after several doses of laxatives. Still has Villarreal catheter. . Objective Last 8 Hrs Date Time Temp Pulse Resp B/P (MAP) Pulse Ox O2 Delivery O2 Flow Rate FiO2 05/10/17 12:00 Nasal Cannula 2.0 05/10/17 11:54 36.8 70 20 162/67 (98) 82 Room Air Tent 05/10/17 08:00 Nasal Cannula 2.0 05/10/17 07:38 36.4 90 18 166/83 (110) 99 Nasal Cannula 2.0 Physical Exam: General- lying in bed, no distress Neck- slight JVD Lungs- clear to auscultation Heart- regular, III/ systolic murmur at base, no gallop Abdomen- normal bowel sounds, soft, nontender Extremities- right lower extremity with immobilizer applied; no pretibial edema or calf tenderness left lower extremity; SCD applied to LLE Neuro- more alert, confused, oriented to person only . Laboratory Results: Last 24 Hours Test 05/10/17 05:36 White Blood Count 9.11 K/uL Red Blood Count 3.34 M/uL Hemoglobin 9.3 g/dL Hematocrit 31.1 % Mean Corpuscular Volume 93.1 fL Mean Corpuscular Hemoglobin 27.8 pg Mean Corpuscular Hemoglobin Concent 29.9 g/dl Platelet Count 228 K/uL Mean Platelet Volume 9.2 fL Neutrophils (%) (Auto) 60.1 % Lymphocytes (%) (Auto) 22.0 % Monocytes (%) (Auto) 14.2 % Eosinophils (%) (Auto) 3.2 % Basophils (%) (Auto) 0.3 % Neutrophils # (Auto) 5.48 K/uL Lymphocytes # (Auto) 2.00 K/uL Monocytes # (Auto) 1.29 K/uL Eosinophils # (Auto) 0.29 K/uL Basophils # (Auto) 0.03 K/uL RDW Standard Deviation 53.9 fL RDW Coefficient of Variation 15.7 % Immature Granulocyte % (Auto) 0.2 % Immature Granulocyte # (Auto) 0.02 K/uL Prothrombin Time 16.7 SECONDS Prothromb Time International Ratio 1.5 Sodium Level 145 mmol/L Potassium Level 4.3 mmol/L Chloride Level 103 mmol/L Carbon Dioxide Level 36 mmol/L Anion Gap 6.0 mmol/L Blood Urea Nitrogen 24 mg/dl Creatinine 0.96 mg/dl Est Creatinine Clear Calc Drug Dose 42.8 ml/min Estimated GFR () 61.2 Estimated GFR (Non- 52.8 BUN/Creatinine Ratio 25.2 Random Glucose 77 mg/dl Calcium Level 8.5 mg/dl Assessment & Plan RIGHT PERIPROSTHETIC FEMUR FRACTURE ORIF performed by Dr. Muñoz on 05/06/17. Nonweightbearing RLE with immobilizer. PT/OT as tolerated. POSTOPERATIVE RESPIRATORY DISTRESS Developed respiratory distress and transient hypoxia in PACU, attributed to laryngospasm and / or possible pseudocholinesterase deficiency. Re-intubated in PACU and transferred to ICU. Extubated on 05/07/17. CHF Chest x-rays postoperatively demonstrated congestive heart failure. Echocardiogram in 2014 demonstrated mild left ventricular hypertrophy, normal left ventricular wall motion and function. Probable acute diastolic CHF/volume overload. Chest x-ray 05/09 showed persistent vascular congestion. Received IV furosemide. Check follow-up chest x-ray tomorrow. ANEMIA Hemoglobin 11.3 on admission and fell as low as 7.3. Acute blood loss anemia secondary to femur fracture. Received 1 unit of packed RBCs. Hemoglobin today = 9.3. BACTERURIA Admission UA showed small amount of leukocyte esterase, negative nitrite, 15 WBCs, 4+ bacteria, many epithelial cells. Urine culture growing > 100,000 gram-positive cocci. Uncertain whether or not bacteruria is symptomatic. No fever. White count as high as 14,000, but could be secondary to femur fracture. Received 2 doses of IV vancomycin and 1 dose of ceftriaxone. Did not appear to be septic. Nasal MRSA screen negative x 2. Stopped antibiotics pending final ID and sensitivity from urine culture. Urine culture growing > 100,000 alpha strep. Resumed ceftriaxone. VILLARREAL CATH Discontinue as soon as possible. PAROXYSMAL ATRIAL FIBRILLATION Continue metoprolol. Warfarin reversed for surgery and has been restarted. HISTORY OF PULMONARY EMBOLISM On chronic warfarin therapy for history of pulmonary embolism and atrial fibrillation. Warfarin reversed for surgery and has been restarted. CKD III Serum creatinine today = 0.96. PMR Received IV hydrocortisone perioperatively. Continue prednisone. DEMENTIA History of dementia. Monitor for delirium. VTE PROPHYLAXIS On chronic warfarin therapy for history of pulmonary embolism and atrial fibrillation. Warfarin reversed for surgery and has been restarted. SQ unfractionated heparin until INR therapeutic. RESUSCITATION STATUS DNR DISPOSITION Expected return to [facility] under the care of Dr. Fuller. . Consultants: Orthopedics Critical Care Medicine . Procedures: ORIF right periprosthetic femur fracture 05/06/17 Cardiac monitoring Endotracheal intubation Mechanical ventilation IV fluids IV medications Transfusion packed RBCs x 1 unit US right lower extremity PT OT Current Inpatient Medications: Current Inpatient Medications Medications (Trade) Dose Ordered Sig/Nemesio Route Start Time Stop Time Status Last Admin Dose Admin Acetaminophen (Tylenol Tab) 650 mg Q4H PRN PO 05/05/17 16:15 06/04/17 16:14 05/09/17 20:47 650 MG Escitalopram Oxalate (Lexapro Tab) 5 mg HS PO 05/05/17 21:00 06/04/17 20:59 05/09/17 20:45 5 MG Metoprolol Tartrate (Lopressor Tab) 25 mg DAILY PO 05/06/17 09:00 06/05/17 08:59 05/10/17 07:37 25 MG Nystatin (Mycostatin Crm) 1 appln BID EXT 05/05/17 21:00 06/04/17 20:59 05/10/17 07:36 1 APPLN Rosuvastatin Calcium (Crestor Tab) 5 mg DAILY PO 05/06/17 09:00 06/05/17 08:59 05/10/17 07:36 5 MG Polyethylene (Miralax Powder Packet) 17 gm DAILY PO 05/06/17 09:00 06/05/17 08:59 05/10/17 07:37 17 GM Prednisone (PredniSONE TAB) 3 mg DAILY PO 05/08/17 09:00 06/07/17 08:59 05/10/17 07:37 3 MG Pantoprazole Sodium (Protonix Tab) 40 mg QAM PO 05/07/17 09:00 06/06/17 08:59 05/10/17 07:37 40 MG Potassium Chloride (Klor-Con Tab) 20 meq BID PO 05/08/17 21:00 06/07/17 20:59 05/10/17 07:37 20 MEQ Warfarin Sodium (Coumadin Tab) 5 mg DAILY@16 PO 05/08/17 16:00 06/07/17 15:59 05/09/17 15:50 5 MG Heparin Sodium (Porcine) (Heparin Sq 5000 Unit/0.5ml) 5,000 unit Q12 SQ 05/09/17 09:00 06/08/17 08:59 05/10/17 07:38 5,000 UNIT Tramadol HCl (Ultram Tab) 25 mg Q6H PRN PO 05/09/17 17:30 06/08/17 17:29 Bisacodyl (Dulcolax Tab) 5 mg DAILY PRN PO 05/09/17 17:30 06/08/17 17:29 Magnesium Hydroxide (Milk Of Magnesia Susp) 30 ml Q12H PRN PO 05/09/17 17:30 06/08/17 17:29 05/09/17 19:10 30 ML Sodium Biphosphate/ Sodium Phosphate (Fleet Enema) 132 ml DAILY PRN [place] 05/09/17 17:30 06/08/17 17:29
[2017-05-10] MEDS: WARFARIN SOD 5 MG TAB PO SCH (16:15)
[2017-05-10] MEDS: ACETAMINOPHEN 325 MG TAB PO PRN (19:01)
[2017-05-10] MEDS: ESCITALOPRAM OXALATE 10 MG TAB PO SCH (20:55)
--- NOTE | 2017-05-11 07:04 | DIAGNOSTIC IMAGING REPORT ---
CHEST ONE VIEW PORTABLE CLINICAL HISTORY: f/u CHF dyspnea COMPARISON STUDY: 05/09/2017 FINDINGS: Improved components of congestive heart failure. Diminished pulmonary vascular prominence. Chronic elevation right hemidiaphragm. Severe degenerative change of the right and to lesser extent left shoulder. IMPRESSION: Improving congestive failure Electronically signed by: Iam De Leon M.D. 05/11/2017 7:03 AM Dictated Date/Time: 05/11/2017 7:02 AM
[2017-05-11 07:27] LABS: HEMATOCRIT 33.4 % (37-47)
[2017-05-11 07:33] LABS: INR 2.1 (0.9-1.1); PROTHROMBIN TIME (PATIENT) 22.7 SECONDS (9.0-12.0)
[2017-05-11 07:42] VITALS: BP 160/85; PULSE 89; TEMP 36.7; O2SAT 94
[2017-05-11 08:03] LABS: BUN/CREATININE RATIO 23.9 (10-20); CALCIUM 8.6 mg/dl (8.5-10.1); CREATININE 0.72 mg/dl (0.60-1.20); POTASSIUM 4.2 mmol/L (3.5-5.1)
[2017-05-11] MEDS: POLYETHYLENE (MIRALAX) 17 GM PACK PO SCH (09:00)
[2017-05-11] MEDS: NYSTATIN CR 15 GM TUBE EXT SCH (09:00)
[2017-05-11] MEDS ORDERED: NURSING DECISION MEDICATION ORDER SCH (09:30)
[2017-05-11] MEDS ORDERED: MICONAZOLE NITRATE POWDER 43 GM EXT PRN (09:45)
--- NOTE | 2017-05-11 09:50 | Progress Note ---
Medicine Progress Note Date & Time of Visit: May 11, 2017 at 09:30 . Subjective Doing well. Out of bed in chair. No chest pain, cough, SOB, nausea, vomiting. Still has Villarreal. RLE pain improved. . Objective Last 8 Hrs Date Time Temp Pulse Resp B/P (MAP) Pulse Ox O2 Delivery O2 Flow Rate FiO2 05/11/17 07:42 36.7 89 17 160/85 (110) 94 Room Air 05/11/17 07:20 Nasal Cannula 2.0 Physical Exam: General- sitting in chair, no distress Neck- no JVD Lungs- clear to auscultation Heart- regular, III/ systolic murmur at base, no gallop Abdomen- normal bowel sounds, soft, nontender Extremities- right lower extremity with immobilizer applied; no pretibial edema or calf tenderness left lower extremity; SCD applied to LLE Neuro- more alert, pleasantly confused, oriented to person and hospital, but not date . Laboratory Results: Last 24 Hours Test 05/11/17 06:57 Hemoglobin 9.8 g/dL Hematocrit 33.4 % Prothrombin Time 22.7 SECONDS Prothromb Time International Ratio 2.1 Sodium Level 143 mmol/L Potassium Level 4.2 mmol/L Chloride Level 102 mmol/L Carbon Dioxide Level 33 mmol/L Anion Gap 8.0 mmol/L Blood Urea Nitrogen 17 mg/dl Creatinine 0.72 mg/dl Est Creatinine Clear Calc Drug Dose 57.0 ml/min Estimated GFR () 86.7 Estimated GFR (Non- 74.8 BUN/Creatinine Ratio 23.9 Random Glucose 72 mg/dl Calcium Level 8.6 mg/dl Assessment & Plan RIGHT PERIPROSTHETIC FEMUR FRACTURE ORIF performed by Dr. Muñoz on 05/06/17. Nonweightbearing RLE with immobilizer. PT/OT as tolerated. POSTOPERATIVE RESPIRATORY DISTRESS Developed respiratory distress and transient hypoxia in PACU, attributed to laryngospasm and / or possible pseudocholinesterase deficiency. Re-intubated in PACU and transferred to ICU. Extubated on 05/07/17. CHF Chest x-rays postoperatively demonstrated congestive heart failure. Echocardiogram in 2014 demonstrated mild left ventricular hypertrophy, normal left ventricular wall motion and function. Probable acute diastolic CHF/volume overload. Chest x-ray 05/09 showed persistent vascular congestion. Received IV furosemide. Chest x-ray today showed improved CHF. ANEMIA Hemoglobin 11.3 on admission and fell as low as 7.3. Acute blood loss anemia secondary to femur fracture. Received 1 unit of packed RBCs. Hemoglobin today = 9.8 Discharge on Fe supplementation. BACTERURIA Admission UA showed small amount of leukocyte esterase, negative nitrite, 15 WBCs, 4+ bacteria, many epithelial cells. Urine culture growing > 100,000 gram-positive cocci. Uncertain whether or not bacteruria is symptomatic. No fever. White count as high as 14,000, but could be secondary to femur fracture. Received 2 doses of IV vancomycin and 1 dose of ceftriaxone. Did not appear to be septic. Nasal MRSA screen negative x 2. Stopped antibiotics pending final ID and sensitivity from urine culture. Urine culture growing > 100,000 alpha strep. Received ceftriaxone, last dose will be given today. Recheck UA if febrile or if experiencing urinary symptoms. VILLARREAL CATH Discontinue. PAROXYSMAL ATRIAL FIBRILLATION Continue metoprolol. Warfarin reversed for surgery and restarted. HISTORY OF PULMONARY EMBOLISM On chronic warfarin therapy for history of pulmonary embolism and atrial fibrillation. Warfarin reversed for surgery and has been restarted. INR today 2.1. CKD III Serum creatinine today = 0.72. Avoid NSAID's. PMR Received IV hydrocortisone perioperatively. Continue prednisone. DEMENTIA / DELIRIUM History of dementia. Acute delirium secondary to femur fracture, change of environment, analgesics. Delirium improved. VTE PROPHYLAXIS On chronic warfarin therapy for history of pulmonary embolism and atrial fibrillation. Warfarin reversed for surgery and has been restarted. Received SQ unfractionated heparin until INR therapeutic. RESUSCITATION STATUS DNR DISPOSITION Returning to [facility] under the care of Dr. Fuller. Dillon Jett given update by phone this morning. . Consultants: Orthopedics Critical Care Medicine . Procedures: ORIF right periprosthetic femur fracture 05/06/17 Cardiac monitoring Endotracheal intubation Mechanical ventilation IV fluids IV medications Transfusion packed RBCs x 1 unit US right lower extremity PT OT Current Inpatient Medications: Current Inpatient Medications Medications (Trade) Dose Ordered Sig/Nemesio Route Start Time Stop Time Status Last Admin Dose Admin Acetaminophen (Tylenol Tab) 650 mg Q4H PRN PO 05/05/17 16:15 06/04/17 16:14 05/10/17 19:01 650 MG Escitalopram Oxalate (Lexapro Tab) 5 mg HS PO 05/05/17 21:00 06/04/17 20:59 05/10/17 20:55 5 MG Metoprolol Tartrate (Lopressor Tab) 25 mg DAILY PO 05/06/17 09:00 06/05/17 08:59 05/10/17 07:37 25 MG Nystatin (Mycostatin Crm) 1 appln BID EXT 05/05/17 21:00 06/04/17 20:59 05/10/17 20:56 1 APPLN Rosuvastatin Calcium (Crestor Tab) 5 mg DAILY PO 05/06/17 09:00 06/05/17 08:59 05/10/17 07:36 5 MG Polyethylene (Miralax Powder Packet) 17 gm DAILY PO 05/06/17 09:00 06/05/17 08:59 05/10/17 07:37 17 GM Prednisone (PredniSONE TAB) 3 mg DAILY PO 05/08/17 09:00 06/07/17 08:59 05/10/17 07:37 3 MG Pantoprazole Sodium (Protonix Tab) 40 mg QAM PO 05/07/17 09:00 06/06/17 08:59 05/10/17 07:37 40 MG Potassium Chloride (Klor-Con Tab) 20 meq BID PO 05/08/17 21:00 06/07/17 20:59 05/10/17 20:55 20 MEQ Warfarin Sodium (Coumadin Tab) 5 mg DAILY@16 PO 05/08/17 16:00 06/07/17 15:59 05/10/17 16:15 5 MG Tramadol HCl (Ultram Tab) 25 mg Q6H PRN PO 05/09/17 17:30 06/08/17 17:29 Bisacodyl (Dulcolax Tab) 5 mg DAILY PRN PO 05/09/17 17:30 06/08/17 17:29 Magnesium Hydroxide (Milk Of Magnesia Susp) 30 ml Q12H PRN PO 05/09/17 17:30 06/08/17 17:29 05/09/17 19:10 30 ML Sodium Biphosphate/ Sodium Phosphate (Fleet Enema) 132 ml DAILY PRN [place] 05/09/17 17:30 06/08/17 17:29 Miconazole Nitrate (Desenex Powder) 1 appln UD PRN EXT 05/11/17 09:45 06/10/17 09:44
[2017-05-11] MEDS: POTASSIUM CHLORIDE 20 MEQ TABCR PO SCH (09:52)
[2017-05-11] MEDS: ROSUVASTATIN CALCIUM 5 MG TAB PO SCH (09:52)
[2017-05-11] MEDS: PANTOprazole SOD 40 MG TAB PO SCH (09:53)
[2017-05-11] MEDS: METOPROLOL TARTRATE 25 MG TAB PO SCH (09:53)
[2017-05-11 10:04] VITALS: O2SAT 91
[2017-05-11] MEDS ORDERED: ULT50X PO (10:18)
--- NOTE | 2017-05-11 10:28 | Discharge Instructions ---
Discharge Instructions Date of Service May 11, 2017. Admission Reason for Admission: Femur Fracture Discharge Discharge Diagnosis / Problem: right femur fracture Discharge Goals Goal(s): Decrease discomfort, Increase independence Activity Recommendations Activity Level: Assistance Required Therapies: Physical Therapy, Occupational Therapy Weightbearing Status: Right non-weightbearing . Additional Information Patient informed of condition: Yes Advance Directives: Yes DNR: Yes Level of Care: Skilled Communicable Disease: No Prognosis: Improving Rodriguez Catheter: No Instructions / Follow-Up Instructions / Follow-Up APPOINTMENTS: ORTHOPEDICS Dr. Muñoz around 05/21/17. Please call his office for appt. Thank you for receiving this patient in transfer. Please call if you have any questions. Kamron Gallagher . Current Hospital Diet Patient's current hospital diet: AHA Diet (Heart Healthy) Discharge Diet Recommended Diet: AHA Diet (Heart Healthy) Procedures Procedures Performed: Open Reduction Internal Fixation Periprosthetic Femur Fracture Right Pending Studies Studies pending at discharge: yes List of pending studies: vitamin D level Physician Orders On Transfer Special Precautions: fall precautions skin precautions . Vital Signs: routine . Weigh: routine . Additional Orders: Warfarin management per your institution's protocol. . POLST Discussion: Not Applicable Medical Emergencies . Who to Call and When: Medical Emergencies: If at any time you feel your situation is an emergency, please call 911 immediately. . Non-Emergent Contact Non-Emergency issues call your: Primary Care Provider, Specialist (Orthopedics) . . "Provider Documentation" section prepared by Kamron Gallagher. . Matcher Operator Recommendations Matcher Operator Recommendations: Pt must remain Non weightbearing with Immobilizer on at all times. Walker for ambulation if pt able to. Otherwise, plan for bed to chair transfers Immobilizer may be removed for bathing and dressing changes. Daily dressing changes. If wound is dry, may change dressing every other day. Keep wound covered while using Immobilizer. Pt may shower if having minimal to no drainage. No direct shower pressure to wound. Do not soak the wound. No tub baths. No Range of Motion of the knee until seen in the office by Dr Muñoz. F/U with Dr Muñoz in 2 weeks from the day of surgery. Call for appt. [phone] Core Measure Problem Core Measures: None [place] Drug Monitoring Program Search Results: patient reviewed within database, no issues identified Drug Monitoring Findings: Reviewed. No concerns. .
--- NOTE | 2017-05-11 10:34 | Discharge Summary ---
Discharge Summary Date of Service May 11, 2017. Discharge Summary Admission Date: May 05, 2017 at 16:09 Discharge Date: May 11, 2017 Discharge Disposition: long-term facility ([facility]) Principal Diagnosis: right femur fracture . Secondary Diagnoses/Problems: Other Acute Medical Problems: postoperative respiratory distress acute blood loss anemia acute left ventricular diastolic heart failure delirium bacteruria, probably asymptomatic Chronic and Resolved Medical Problems: (1) Anemia of chronic disease Status: Chronic (2) Atrial fibrillation Status: Chronic (3) Chronic kidney disease, stage 3 Status: Chronic (4) Coronary artery disease Status: Chronic (5) Gastroesophageal reflux disease Status: Chronic (6) Hyperlipidemia Status: Chronic (7) Osteoporosis Status: Chronic (8) PMR (polymyalgia rheumatica) Status: Chronic (9) Pulmonary embolism Status: Chronic (10) Rotator cuff arthropathy Status: Chronic (11) Vascular dementia without behavioral disturbance Status: Chronic . Procedures: ORIF right periprosthetic femur fracture 05/06/17 Cardiac monitoring Endotracheal intubation Mechanical ventilation IV fluids IV medications Transfusion packed RBCs x 1 unit US right lower extremity PT OT . Consultations: Orthopedics Critical Care Medicine . Medication Reconciliation New Medications: Tramadol HCl (Tramadol HCl) 50 Mg Tab 25 MG PO Q6H PRN for severe pain, #6 TAB Continued Medications: Acetaminophen (Tylenol) 325 Mg Tab 650 MG PO Q4 PRN for Mild Pain, TAB Aluminum/Magnesium/Simeth (Maalox Max Susp) Susp 30 ML PO ACHS PRN for Indigestion Bisacodyl (Bisac-Evac) 10 Mg Supp 10 MG NC DAILY PRN for Constipation one time daily if milk of magnesia ineffective on day 5 of no bm during the morning Calcium (Calcium) 600 Mg Tab 1200 MG PO QAM Cholecalciferol (Vitamin D3) 2,000 Unit Tab 1 TAB PO DAILY for 90 Days, #90 TAB 3 Refills Escitalopram Oxalate (Lexapro) 5 Mg Tab 5 MG PO HS Guaifenesin (Siltussin Sa) 100 Mg/5 Ml Syp 10 ML PO Q4 PRN for Cough Magnesium Hydroxide (Milk Of Magnesia) 30 Ml Susp 30 ML PO DAILY PRN for if no bm x 3 days, ML Menthol-Methyl Salicylate ([place] (Icy Hot [place] Extra Streng) 1 Oin Oin 1 APPLN TOP QID PRN for Pain Metoprolol Tartrate (Lopressor) 25 Mg Tab 25 MG PO DAILY Nystatin (Nystatin Cream) 90 Appln/30 Gm Cr 0 EXT, #15 GM APPLY TO AFFECTED AREA BID apply to groin rash and buttocks Omeprazole (Omeprazole) 20 Mg Tab 20 MG PO DAILY Polyethylene Glycol 3350 (Miralax) 1 Pow Pow 17 GM PO DAILY, #527 GM Prednisone (Prednisone) 1 Mg Tab 3 MG PO DAILY, TAB Rosuvastatin Calcium (Crestor) 5 Mg Tab 5 MG PO DAILY Sodium Phosphate/Biphosphate (Fleet Enema) Vandana 1 EA NC DAILY PRN for Constipation, BTL one time daily if dulcolax supp not effective on day 6 of no bm in the morning Warfarin Sodium (Warfarin Sodium) 2.5 Mg Tab 2.5 MG PO 6XWK Everyday except Sunday Warfarin Sodium (Warfarin Sodium) 5 Mg Tab 5 MG PO WK for 90 Days, TAB 3 Refills Sunday Discontinued Medications: Tramadol (Ultram) 50 Mg Tab 1 TAB PO Q4 PRN for Pain for 30 Days, #90 TAB Tramadol (Ultram) 50 Mg Tab 50 MG PO HS, TAB Admission Information HPI (per Admitting provider): 86 year old female, resident of [facility], with history of Dementia, Pulmonary Embolism, A fib on coumadin, PMR on Prednisone, HTN, GERD, CKD, presenting with fall and right leg pain. Follows with Dr. Fuller for Primary Care Physician. Patient apparently stood up from the toilet, fell and landed on her right side, hitting knee on the floor. She then had severe pain on the right leg. At the ER, xray showed Acute moderately displaced distal right femoral periprosthetic fracture. Ortho consulted and plan is for surgical repair in AM. On exam, patient seen resting in bed, comfortable. Reports severe pain when moving right leg. Denies chest pain, dyspnea, palpitations, dizziness. Oriented x 2. No other symptoms. . Physical Exam (per Admitting): General Appearance: WD/WN, no apparent distress Head: normocephalic, atraumatic Eyes: normal inspection, PERRL, EOMI, sclerae normal ENT: normal ENT inspection, hearing grossly normal, pharynx normal Neck: supple, no adenopathy, thyroid normal, no JVD, trachea midline Respiratory/Chest: chest non-tender, lungs clear, normal breath sounds, no respiratory distress, no accessory muscle use Cardiovascular: regular rate, rhythm, no edema, no murmur, normal peripheral pulses Abdomen/GI: normal bowel sounds, non tender, soft, no organomegaly Back: normal inspection, no CVA tenderness Extremities/Musculoskelatal: normal inspection, no calf tenderness, no pedal edema Neurologic/Psych: central aisle cashier II-XII nml as tested, no motor/sensory deficits, alert , normal mood/affect, normal reflexes, + pertinent finding (oriented x 2) Skin: normal color, warm/dry, no rash Lymphatic: no adenopathy Hospital Course RIGHT PERIPROSTHETIC FEMUR FRACTURE ORIF performed by Dr. Muñoz on 05/06/17. Nonweightbearing RLE with immobilizer. PT/OT as tolerated. POSTOPERATIVE RESPIRATORY DISTRESS Developed respiratory distress and transient hypoxia in PACU, attributed to laryngospasm and / or possible pseudocholinesterase deficiency. Re-intubated in PACU and transferred to ICU. Extubated on 05/07/17. CHF Chest x-rays postoperatively demonstrated congestive heart failure. Echocardiogram in 2014 demonstrated mild left ventricular hypertrophy, normal left ventricular wall motion and function. Probable acute diastolic CHF/volume overload. Chest x-ray 05/09 showed persistent vascular congestion. Received IV furosemide. Chest x-ray today showed improved CHF. ANEMIA Hemoglobin 11.3 on admission and fell as low as 7.3. Acute blood loss anemia secondary to femur fracture. Received 1 unit of packed RBCs. Hemoglobin today = 9.8 Discharge on Fe supplementation. BACTERURIA Admission UA showed small amount of leukocyte esterase, negative nitrite, 15 WBCs, 4+ bacteria, many epithelial cells. Urine culture growing > 100,000 gram-positive cocci. Uncertain whether or not bacteruria is symptomatic. No fever. White count as high as 14,000, but could be secondary to femur fracture. Received 2 doses of IV vancomycin and 1 dose of ceftriaxone. Did not appear to be septic. Nasal MRSA screen negative x 2. Stopped antibiotics pending final ID and sensitivity from urine culture. Urine culture growing > 100,000 alpha strep. Received ceftriaxone, last dose will be given today. Recheck UA if febrile or if experiencing urinary symptoms. VILLARREAL CATH Discontinue. PAROXYSMAL ATRIAL FIBRILLATION NSR. Continue metoprolol. Warfarin reversed for surgery and restarted. HISTORY OF PULMONARY EMBOLISM On chronic warfarin therapy for history of pulmonary embolism and atrial fibrillation. Warfarin reversed for surgery and has been restarted. INR today 2.1. CKD III Serum creatinine today = 0.72. Avoid NSAID's. PMR Received IV hydrocortisone perioperatively. Continue prednisone. DEMENTIA / DELIRIUM History of dementia. Acute delirium secondary to femur fracture, change of environment, analgesics. Delirium improved. VTE PROPHYLAXIS On chronic warfarin therapy for history of pulmonary embolism and atrial fibrillation. Warfarin reversed for surgery and has been restarted. Received SQ unfractionated heparin until INR therapeutic. RESUSCITATION STATUS DNR DISPOSITION Returning to [facility] under the care of Dr. Fuller. Dillon Jett given update by phone this morning. . Total time spent on discharge = 45 min. This includes examination of the patient, discharge planning, medication reconciliation, and communication with other providers. . Discharge Instructions Date of Service May 11, 2017. Admission Reason for Admission: Femur Fracture Discharge Discharge Diagnosis / Problem: right femur fracture Discharge Goals Goal(s): Decrease discomfort, Increase independence Activity Recommendations Activity Level: Assistance Required Therapies: Physical Therapy, Occupational Therapy Weightbearing Status: Right non-weightbearing . Additional Information Patient informed of condition: Yes Advance Directives: Yes DNR: Yes Level of Care: Skilled Communicable Disease: No Prognosis: Improving Villarreal Catheter: No Instructions / Follow-Up Instructions / Follow-Up APPOINTMENTS: ORTHOPEDICS Dr. Muñoz around 05/21/17. Please call his office for appt. Thank you for receiving this patient in transfer. Please call if you have any questions. Kamron Gallagher . Current Hospital Diet Patient's current hospital diet: AHA Diet (Heart Healthy) Discharge Diet Recommended Diet: AHA Diet (Heart Healthy) Procedures Procedures Performed: Open Reduction Internal Fixation Periprosthetic Femur Fracture Right Pending Studies Studies pending at discharge: yes List of pending studies: vitamin D level Physician Orders On Transfer Special Precautions: fall precautions skin precautions . Vital Signs: routine . Weigh: routine . Additional Orders: Warfarin management per your institution's protocol. . POLST Discussion: Not Applicable Medical Emergencies . Who to Call and When: Medical Emergencies: If at any time you feel your situation is an emergency, please call 911 immediately. . Non-Emergent Contact Non-Emergency issues call your: Primary Care Provider, Specialist (Orthopedics) . . "Provider Documentation" section prepared by Kamron Gallagher. . Mud Temperer Recommendations Mud Temperer Recommendations: Pt must remain Non weightbearing with Immobilizer on at all times. Walker for ambulation if pt able to. Otherwise, plan for bed to chair transfers Immobilizer may be removed for bathing and dressing changes. Daily dressing changes. If wound is dry, may change dressing every other day. Keep wound covered while using Immobilizer. Pt may shower if having minimal to no drainage. No direct shower pressure to wound. Do not soak the wound. No tub baths. No Range of Motion of the knee until seen in the office by Dr Muñoz. F/U with Dr Muñoz in 2 weeks from the day of surgery. Call for appt. [phone] Core Measure Problem Core Measures: None [place] Drug Monitoring Program Search Results: patient reviewed within database, no issues identified Drug Monitoring Findings: Reviewed. No concerns. . Additional Copies To Brooke Fuller M.D.; Blake Muñoz M.D.
[2017-05-11] MEDS ORDERED: CEFTRIAXONE SOD INJ 1 GM in DEXTROSE 5% ADD-VANTAGE 50ML 50 ML IV ONE (11:00)
[2017-05-11 14:27] VITALS: BP 160/85; PULSE 89; TEMP 36.7; O2SAT 91
[2017-05-12] MEDS ORDERED: WARFARIN SOD 5 MG TAB PO SCH (16:00)
== END 2017-05-11 14:45 | DRG 480 ==
LOC: EDBD 14:06 → C.EDB 14:08 → C.MSN 16:09 → CANRESERV 16:21 → ENRESERV 16:21 → C.MSICU 05-06 19:21 → C.2T 05-07 14:43 → ENRESERV 05-10 15:33 → C.MSW 05-10 16:11
PROVIDERS: ADMIT Internal Medicine; ATTEND Hospitalist
PROC: 5A1935Z Respiratory Ventilation, Less than 24 Consecutive Hours (ICD-10-PCS; 2017-05-06)
PROC: 0BH18EZ Insertion of Endotracheal Airway into Trachea, Via Natural or Artificial Opening Endoscopic (ICD-10-PCS; 2017-05-06)
PROC: 0QSB04Z Reposition Right Lower Femur with Internal Fixation Device, Open Approach (ICD-10-PCS; principal; 2017-05-06 07:30)
DX: S72.401A Unspecified fracture of lower end of right femur, initial encounter for closed fracture (principal); I50.41 Acute combined systolic (congestive) and diastolic (congestive) heart failure; M97.01XA Periprosthetic fracture around internal prosthetic right hip joint, initial encounter; I27.82 Chronic pulmonary embolism; M48.56XA Collapsed vertebra, not elsewhere classified, lumbar region, initial encounter for fracture; D62 Acute posthemorrhagic anemia; G93.41 Metabolic encephalopathy; I25.10 Atherosclerotic heart disease of native coronary artery without angina pectoris; E88.09 Other disorders of plasma-protein metabolism, not elsewhere classified; K21.9 Gastro-esophageal reflux disease without esophagitis; E78.5 Hyperlipidemia, unspecified; Z79.52 Long term (current) use of systemic steroids; M35.3 Polymyalgia rheumatica; I48.0 Paroxysmal atrial fibrillation; Z79.01 Long term (current) use of anticoagulants; N18.3 Chronic kidney disease, stage 3 (moderate); M81.0 Age-related osteoporosis without current pathological fracture; F01.50 Vascular dementia, unspecified severity, without behavioral disturbance, psychotic disturbance, mood disturbance, and anxiety; J38.5 Laryngeal spasm; K59.00 Constipation, unspecified; F32.9 Major depressive disorder, single episode, unspecified; Z96.653 Presence of artificial knee joint, bilateral; W18.11XA Fall from or off toilet without subsequent striking against object, initial encounter; Y93.E8 Activity, other personal hygiene; Y92.012 Bathroom of single-family (private) house as the place of occurrence of the external cause; Z96.641 Presence of right artificial hip joint